=== PATIENT | male | born 1955 | race Hispanic/Latino ===

== ENCOUNTER → 2022-09-27 | Outpatient (CLI) | payer OTHER ==
[~2022-09-27] MED LIST: PERFLUTREN PROTEIN-A MICROSPHR 0.22 MG/ML VIAL IV ONE
== END | disposition home or self-care (01) ==
LOC: RAH 14:15
PROVIDERS: ATTEND Student in an Organized Health Care Education/Training Program
DX: I51.7 Cardiomegaly (principal); I77.810 Thoracic aortic ectasia; I25.10 Atherosclerotic heart disease of native coronary artery without angina pectoris; I51.89 Other ill-defined heart diseases
CPT/HCPCS: C8929; Q9956

== ENCOUNTER → 2023-06-16 | Outpatient (CLI) | payer OTHER | END | disposition home or self-care (01) | LOC: RAH 15:30 | PROVIDERS: ATTEND Internal Medicine | DX: M79.89 Other specified soft tissue disorders (principal); M71.22 Synovial cyst of popliteal space [Baker], left knee; D68.69 Other thrombophilia; R60.9 Edema, unspecified | CPT/HCPCS: 93971 ==

== ENCOUNTER 2025-01-24 23:00 | Emergency (ER) | payer OTHER ==
[~2025-01-24] VITALS: Ht 180.3 cm; Wt 123.4 kg
--- NOTE | 2025-01-24 23:19 | NUR ---
PATIENT REPORTS FEELING ILL SINCE TUESDAY, FEVER WEAKNESS. SAW PCP TODAY AND WAS TOLD WBC WERE ELEVATED
[2025-01-24 23:21] LABS: RAPID GROUP A STREP negative (NEGATIVE)
[2025-01-24 23:31] LABS: COVID19 (SARS ANTIGEN RAPID) PRESUMPTIVE NEGATIVE (NEGATIVE); INFLUENZA TYPE A Negative For Type A (NEGATIVE); INFLUENZA TYPE B Negative For Type B (NEGATIVE)
[2025-01-24 23:34] LABS: IMMATURE GRANULOCYTE ABSOLUTE 0.05 K/uL (0-1); NUCLEATED RED BLOOD CELLS 0.0 % (0.0-0.19); PLATELET COUNT (AUTO) 142 K/uL (130-400); RED BLOOD CELL COUNT(AUTO) 4.20 MIL/uL (4.50-6.20); RED CELL DISTRIBUTION WIDTH 14.6 % (11.0-15.5); WHITE BLOOD COUNT (AUTO) 11.8 K/uL (4.8-10.8)
[2025-01-24 23:49] LABS: CREATININE 1.4 mg/dL (0.5-1.3); GLOMERULAR FILTR. RATE CALC 54.0 mL/min (>90); GLUCOSE,RANDOM 164.0 mg/dL (70-105); SODIUM SERUM 130.0 mmol/L (136-145); UREA NITROGEN, BLOOD 27.0 mg/dL (7-18)
--- NOTE | 2025-01-24 23:53 | HMCIMG ---
EXAM: CR Chest, 1 view CLINICAL HISTORY: Shortness of breath. COMPARISON: None provided. FINDINGS: Mild bibasilar atelectasis, more pronounced on the left side. The lungs show no infiltrates or other acute findings. No pleural effusion or pneumothorax. The cardiomediastinal silhouette is within normal limits. A cardiac pacemaker device is present on the left side. No acute osseous abnormality. IMPRESSION: No acute cardiopulmonary process is evident. Mild bibasilar atelectasis, more pronounced on the left side. /[place]
[2025-01-24 23:58] LABS: ASPARTATE AMINOTRANSFERASE 29.0 U/L (10-37); CREATINE KINASE, TOTAL 117.0 U/L (21-232); TOTAL PROTEIN, SERUM 6.5 g/dL (6.0-8.3)
[2025-01-25] MEDS: 0.9%NACL 1000ML 1,000 ML IV ONE (00:42)
[2025-01-25 01:12] LABS: APPEARANCE,URINE CLEAR (CLEAR); GLUCOSE, URINE (UA) >=1000 mg/dL (NEGATIVE); LEUKOCYTE ESTERASE ,URINE NEGATIVE Leu/uL (NEGATIVE); NITRATE,URINE NEGATIVE (NEGATIVE); OCCULT BLOOD,URINE +- (TRACE) (NEGATIVE)
[2025-01-25 01:22] LABS: ADD UA MICROSCOPIC YES
[2025-01-25 01:24] LABS: SQUAMOUS EPITHELIAL CELL,UR RARE /HPF (0-2)
[2025-01-25 01:51] VITALS: BP 111/50; PULSE 89; RESP 16; TEMP 98.9; O2SAT 96
--- NOTE | 2025-01-25 02:20 | ERN ---
General Chief Complaint: Fever Stated Complaint: FEVER Time Seen by MD: 23:02 Time Seen by Midlevel: 23:02 Source: patient History of Present Illness Initial Comments The patient is a 69-year-old male with a past medical history of type 2 diabetes, hypertension, hyperlipidemia, and congestive heart failure presenting to the emergency department for evaluation of generalized body weakness that has been ongoing for the last three days. He was seen by his primary care doctor today where he had blood work performed and was diagnosed with an elevated white blood cell count along with dehydration. Allergies: Coded Allergies: No Allergy Information Available (Verified Allergy, Unknown, 09/27/22) Penicillins (Unverified Allergy, Unknown, 01/24/25) Past Medical History Past Medical History: A-Fib, CAD, CHF, DE, Other Medical History Other: HYPOTENSION Past Surgical History: Other Surgical History Other: HEART STENT, EXP LAP ROS Dictation CONSTITUTIONAL: Negative except for HPI HEAD/FACE: Negative except for HPI EENT: Negative except for HPI RESPIRATORY: Negative except for HPI GASTROINTESTINAL/ABDOMINAL: Negative except for HPI GENITOURINARY: Negative except for HPI MUSCULOSKELETAL: Negative except for HPI INTEGUMENTARY: Negative except for HPI NEUROLOGICAL/PSYCH: Negative except for HPI HEMATOLOGIC/LYMPHATIC: Negative except for HPI All Systems Negative, Except as noted above. 13 point review of systems assessed and all negative except for above. Physical Exam Physical Exam Dictation Vital Signs reviewed General Appearance: Alert, oriented x 3, no acute distress, well developed, nourished. Head and Face: non-traumatic. Eyes: PERRL, pink conjunctivas, eyelid no trauma, anterior chamber with arcus senilis. Ears: Pinnas intact and no signs of trauma or erythema ear canals clear and no discharge TM no erythema Nose: No discharge, no bleeding. Oropharynx: Mouth normal, tongue pink, pharynx clear,no erythema, tonsils no exudates, no abscesses noted, mucous membrane moist Neck: Supple, non-tender, no thyromegaly, no masses, no JVD, no bruits Breast:Deferred Chest:No tenderness, no crepitus, no paradoxical movement, no retractions Lungs:Clear, well-ventilated, symmetric, no rales, no wheezing, no rhonchi, no stridor, good breath sounds bilaterally Heart: Regular rate, regular rhythm, no murmur, no gallops Vascular: no peripheral edema, Abdomen: Soft, positive bowel sounds, nondistended, no guarding, nontender, no rebound, no masses no hepatomegaly, no splenomegaly, no Forrest's sign, no hernias. Rectal: Deferred Genital: Deferred Neurological: Normal speech, motor function intact, sensory function intact Musculoskeletal: Neck nontender, full range of motion, back nontender, full range of motion, Extremities: nontender, full range of motion Skin: Color pink, dry, no turgor, no rash, no lacerations, no abrasions, no contusions. Lymphatic: Deferred Results Laboratory and Microbiology Lab and Micro Result Laboratory Tests Test 01/24/25 23:03 01/24/25 23:26 01/25/25 00:15 Influenza Type A Antigen Negative For Type A Influenza Type B Antigen Negative For Type B SARS-CoV-2 Antigen (Rapid) PRESUMPTIVE NEGATIVE Group A Streptococcus Rapid negative (NEGATIVE) White Blood Count 11.8 K/uL (4.8-10.8) H Red Blood Count 4.20 MIL/uL (4.50-6.20) L Hemoglobin 12.0 g/dL (14.0-18.0) L Hematocrit 35.5 % (42-54) L Mean Corpuscular Volume 84.5 fL (79-99) Mean Corpuscular Hemoglobin 28.6 pg (27.0-33.0) Mean Corpuscular Hemoglobin Concent 33.8 g/dL (32.0-36.0) Red Cell Distribution Width 14.6 % (11.0-15.5) Platelet Count 142 K/uL (130-400) Mean Platelet Volume 10.4 fL (7.5-10.5) Immature Granulocyte % (Auto) 0.4 % (0-1) Neutrophils (%) (Auto) 77.6 % (40.0-77.0) H Lymphocytes (%) (Auto) 8.7 % (21.0-51.0) L Monocytes (%) (Auto) 12.6 % (3.0-13.0) Eosinophils (%) (Auto) 0.4 % (0.0-8.0) Basophils (%) (Auto) 0.3 % (0.0-5.0) Neutrophils # (Auto) 9.2 K/uL (1.8-7.7) H Lymphocytes # (Auto) 1.0 K/uL (1.0-4.8) Monocytes # (Auto) 1.5 K/uL (0.1-1.0) H Eosinophils # (Auto) 0.05 K/uL (0.00-0.70) Basophils # (Auto) 0.03 K/uL (0.00-0.20) Absolute Immature Granulocyte (auto 0.05 K/uL (0-1) Nucleated Red Blood Cells 0.0 % (0.0-0.19) White Cell Morphology Comment See comments Sodium Level 130 mmol/L (136-145) L Potassium Level 3.8 mmol/L (3.5-5.1) Chloride Level 99 mmol/L (101-111) L Carbon Dioxide Level 23 mmol/L (21-32) Blood Urea Nitrogen 27 mg/dL (7-18) H Creatinine 1.4 mg/dL (0.5-1.3) H Glomerular Filtration Rate Calc 54 mL/min (>90) Random Glucose 164 mg/dL (70-105) H Lactic Acid Level 1.5 mmol/L (0.8-2.5) Total Calcium 8.6 mg/dL (8.5-10.1) Magnesium Level 2.20 mg/dL (1.80-2.40) Total Bilirubin 1.0 mg/dL (0.2-1.0) Aspartate Amino Transf (AST/SGOT) 29 U/L (10-37) Alanine Aminotransferase (ALT/SGPT) 30 U/L (12-78) Alkaline Phosphatase 77 U/L (50-136) Total Creatine Kinase 117 U/L (21-232) Troponin I High Sensitivity 17 ng/L (4-75) B-Type Natriuretic Peptide 129 pg/mL (0-100) H Total Protein 6.5 g/dL (6.0-8.3) Albumin 2.4 g/dL (3.5-5.0) L Urine Color LIGHT-YELLOW (YELLOW) Urine Appearance CLEAR (CLEAR) Urine pH 5.5 (5.0-8.0) Urine Specific [place] 1.030 (1.001-1.031) Urine Protein 20 mg/dL (NEGATIVE) H Urine Glucose (UA) >=1000 mg/dL (NEGATIVE) H Urine Ketones NEGATIVE mg/dL (NEGATIVE) Urine Occult Blood +- (TRACE) (NEGATIVE) H Urine Nitrate NEGATIVE (NEGATIVE) Urine Bilirubin NEGATIVE mg/dL (NEGATIVE) Urine Urobilinogen 0.2 mg/dL (0.2-1.0) Urine Leukocyte Esterase NEGATIVE Sushant/uL Urine RBC 0-1 /HPF (0-1) Urine WBC 2-5 /HPF (0-1) H Urine Squamous Epithelial Cells RARE /HPF (0-2) Urine Bacteria FEW /HPF (None Seen) Labs Reviewed?: Yes MDM MDM: Differential diagnosis: Dehydration, electrolyte abnormality, pneumonia, urinary tract infection, COVID-19 There are no social concerns with this patient. Prescription drug management Prescriptions will include: None Medical management and examination interpretation discussions were had by me with other qualified healthcare professionals as indicated for the patient's care. ED Course Orders Procedure Category Date Status Time Covid19 (Sars Antigen LAB 01/24/25 Complete Rapid) 23:02 Influenza Type A & B, LAB 01/24/25 Complete Rapid 23:02 Rapid (Group A Strep) LAB 01/24/25 Complete 23:02 Cbc With Differential LAB 01/24/25 Complete 23:16 Creatine Kinase, Total LAB 01/24/25 Complete 23:16 B-Type Natriuretic LAB 01/24/25 Complete Peptide 23:16 Lactic Acid LAB 01/24/25 Complete 23:16 Magnesium LAB 01/24/25 Complete 23:16 Troponin I High LAB 01/24/25 Complete Sensitivity 23:16 Urinalysis Profile LAB 01/24/25 Complete 23:16 Chest 1vw RAD 01/24/25 Resulted 23:16 Comprehensive LAB 01/24/25 Complete Metabolic Panel 23:16 0.9%Nacl 1000ml (Ns PHA 01/25/25 Complete 1000ml) 00:30 Current Medications Medications (Trade) Dose Ordered Sig/Bethany Route PRN Reason Start Time Stop Time Status Last Admin Dose Admin Sodium Chloride 1,000 ml @ 0 mls/hr ONCE ONCE IV 01/25/25 00:30 01/25/25 00:31 DC 01/25/25 00:42 Vital Signs Date Time Temp Pulse Resp B/P (MAP) Pulse Ox O2 Delivery O2 Flow Rate FiO2 01/25/25 01:51 99.0 89 16 111/50 96 Room Air* 0 21 01/24/25 23:04 99.1 108 18 108/66 95 Room Air 0 DX & DISP Disposition: Discharge Departure Impression: Primary Impression: Dehydration Condition: Stable Additional Instructions: Your blood work today is consistent with dehydration. Your urinalysis does not show any evidence of infection. You have tested negative for influenza a, influenza B, and COVID-19. Your chest x-ray shows no signs of pneumonia. Your cardiac enzymes are negative. You were given IV fluids in the emergency department. Please follow up with your primary care doctor tomorrow for repeat evaluation. If you develop any new or worsening symptoms please report to the ER for further evaluation. Referrals: TOÑO GARCIA MD (PCP) Time of Disposition: 02:22 I have reviewed the case, and I agree with, Diagnosis and Plan I performed the substantive portion of the visit. I have reviewed and personally made and approve the management plan that is documented in the note by myself or the COURTNEY. I acknowledge for responsibility for the patient's management plan. CIERRA CHOI Jan 25, 2025 02:20
== END 2025-01-25 02:29 | disposition home or self-care (01) ==
LOC: EDH 23:00
DX: E86.0 Dehydration (principal); I48.91 Unspecified atrial fibrillation; E11.9 Type 2 diabetes mellitus without complications; E78.5 Hyperlipidemia, unspecified; I11.0 Hypertensive heart disease with heart failure; I50.9 Heart failure, unspecified; I25.10 Atherosclerotic heart disease of native coronary artery without angina pectoris; Z88.0 Allergy status to penicillin; Z95.5 Presence of coronary angioplasty implant and graft; Z20.822 Contact with and (suspected) exposure to COVID-19
CPT/HCPCS: 99284; 71045; 87426; 82550; 83735; 84484; 80053; 83880; 85025; 87880; 87804 ×2; 83605; 81001; 36415; J7030

== ENCOUNTER 2025-06-10 10:55 | Inpatient (IN) | payer OTHER ==
[~2025-06-10] VITALS: Ht 180.3 cm; Wt 114.9 kg
--- NOTE | 2025-06-10 11:07 | ERN ---
General Chief Complaint: Dizzy/Light Headed Stated Complaint: WEAKNESS ONSET TODAY Time Seen by MD: 10:58 Source: patient History of Present Illness Initial Comments The patient is a 69-year-old male who came to the ER with complaint of dizziness and vertigo. As per the patient, the patient wake up in the morning today the patient was having severe vertigo as the room was spinning around and was feeling dizzy. The patient did not tried to get up from the bed and laid in the bed. The patient stated that he has had episodes of vertigo and dizziness in the past worse but this was the worst one Timing/Duration: 4-6 hours Modifying Factors: improves with movement Associated Symptoms: other Allergies: Coded Allergies: No Allergy Information Available (Verified Allergy, Unknown, 09/27/22) Penicillins (Unverified Allergy, Unknown, 01/24/25) Past Medical History Past Medical History: CAD, CHF, Diabetes-Type II, Hypertension, [place] Medical History Other: ORTHOSTATIC HYPOTENSION Past Surgical History: Pacer/AICD Surgical History Other: HEART STENT, EXP LAP Constitutional: (+) other documentation EENTM: (-) eye pain, (-) blurred vision, (-) tearing, (-) double vision, (-) ear pain, (-) ear discharge, (-) nose pain, (-) nose congestion, (-) throat pain, (-) Throat swelling, (-) mouth pain, (-) tooth pain, (-) mouth swelling, (-) other documentation Respiratory: (-) cough, (-) orthopnea, (-) short of breath, (-) stridor, (-) wheezing, (-) other documentation Cardiovascular: (-) chest pain, (-) edema, (-) palpitations, (-) syncope, (-) dyspnea on exertion, (-) other documentation Gastrointestinal/Abdominal: (-) nausea, (-) vomiting, (-) diarrhea, (-) abdominal pain, (-) abdominal distention, (-) constipation, (-) rectal bleeding, (-) dark stool/melena, (-) other documentation Genitourinary: (-) penile discharge, (-) dysuria, (-) frequency, (-) hematuria, (-) pain, (-) other documentation Musculoskeletal: (-) Neck pain, (-) back pain, (-) Flank Pain, (-) joint pain, (-) joint swelling, (-) muscle pain, (-) muscle stiffness, (-) gout, (-) other documentation Skin: (-) laceration, (-) contusion, (-) abrasion, (-) abscess, (-) rash, (-) change in color, (-) change in hair, (-) change in nails, (-) diaphoresis, (-) dryness, (-) other documentation Neuro: (+) vertigo Physical Exam Orientation: (+) alert, (+) oriented x 3 Head/Face Trauma: No Ear, Nose, Throat: (+) hearing grossly normal Neck: (+) normal inspection Respiratory: (+) lungs clear Heart: (+) regular Back: (-) normal inspection, (-) no CVA tenderness, (-) no vertebral tenderness, (-) CVA tenderness (R), (-) CVA tenderness (L), (-) decreased range of motion, (-) muscle spasm, (-) vertebral tenderness, (-) other Extremities: (-) normal range of motion, (-) non-tender, (-) normal inspection, (-) no pedal edema, (-) no calf tenderness, (-) normal capillary refill, (-) pelvis stable, (-) calf tenderness, (-) inflammation, (-) pedal edema, (-) slow capillary refill, (-) swelling, (-) other Neurologic/Psychiatric: (-) normal speech, (-) no motor defecits, (-) no sensor y deficits, (-) electrician master II-XII nml as tested, (-) normal gait, (-) normal mood/affect, (-) abnormal cerebellar tests, (-) abnormal gait, (-) aphasia, (-) facial droop, (-) other documentation Results Laboratory and Microbiology Lab and Micro Result Laboratory Tests Test 06/10/25 11:14 White Blood Count 7.8 K/uL (4.8-10.8) Red Blood Count 4.99 MIL/uL (4.50-6.20) Hemoglobin 13.9 g/dL (14.0-18.0) L Hematocrit 42.5 % (42-54) Mean Corpuscular Volume 85.2 fL (79-99) Mean Corpuscular Hemoglobin 27.9 pg (27.0-33.0) Mean Corpuscular Hemoglobin Concent 32.7 g/dL (32.0-36.0) Red Cell Distribution Width 14.2 % (11.0-15.5) Platelet Count 133 K/uL (130-400) Mean Platelet Volume 10.2 fL (7.5-10.5) Nucleated Red Blood Cells 0.0 % (0.0-0.19) Sodium Level 138 mmol/L (136-145) Potassium Level 3.8 mmol/L (3.5-5.1) Chloride Level 104 mmol/L (101-111) Carbon Dioxide Level 24 mmol/L (21-32) Blood Urea Nitrogen 10 mg/dL (7-18) Creatinine 1.0 mg/dL (0.5-1.3) Glomerular Filtration Rate Calc 80 mL/min (>90) Random Glucose 125 mg/dL (70-105) H Total Calcium 8.0 mg/dL (8.5-10.1) L Troponin I High Sensitivity 14 ng/L (4-75) Labs Reviewed?: Yes EKG/XRAY/US/CT/MRI EKG Comment Heart rate 65 FL [address] elevation noted MDM MDM: Differential diagnosis: Vertigo, dizzy/lightheadedness The patient was seen and examined in the ER. The patient was complaining of vertigo when moving his head therefore he was given meclizine. Also started on IV fluids. CT scan of the head was done and we are awaiting results. Due to patient's cardiac history and ongoing dizziness the patient is going to get admitted for further workup. Chest x-ray, CBC, BMP and troponin unremarkable ED Course Orders Procedure Category Date Status Time Cbc Without LAB 06/10/25 Complete Differential 11:02 Basic Metabolic Panel LAB 06/10/25 Complete 11:02 Troponin I High LAB 06/10/25 Complete Sensitivity 11:02 Chest 1vw RAD 06/10/25 Resulted 11:02 Orthostatic Vital CPOE 06/10/25 Transmitted Signs 11:02 12 Lead Ekg Tracing- EKG 06/10/25 Complete Technical 11:02 0.9% Nacl 500ml PHA 06/10/25 Complete Iv.Soln (Ns 500ml 11:30 Meclizine Hcl 25 Mg PHA 06/10/25 Complete (Antivert 25 Mg) 11:30 Ct Head/Brain W/O CT 06/10/25 Resulted Contrast 11:49 Lorazepam 2 Mg PHA 06/10/25 Complete (Ativan) 13:00 Current Medications Medications (Trade) Dose Ordered Sig/Bethany Route PRN Reason Start Time Stop Time Status Last Admin Dose Admin Lorazepam (AtiVAN) 0.5 mg ONCE ONCE IVP 06/10/25 13:00 06/10/25 13:01 DC Meclizine HCl (ANTIvert 25 mg) 25 mg ONCE ONCE PO 06/10/25 11:30 06/10/25 11:37 DC 06/10/25 11:54 Sodium Chloride 500 ml @ 0 mls/hr Q0M ONCE IV 06/10/25 11:30 06/10/25 11:37 DC 06/10/25 11:54 Vital Signs Date Time Temp Pulse Resp B/P (MAP) Pulse Ox O2 Delivery O2 Flow Rate FiO2 06/10/25 15:34 60 18 115/65 97 Room Air* 0 06/10/25 11:23 97.9 67 20 121/60 97 Room Air* 0 06/10/25 10:56 97.7 66 16 116/67 98 Room Air 0 DX & DISP Disposition: Inpatient Departure Impression: Primary Impression: Vertigo Additional Impressions: Dehydration, Dizziness Condition: Stable Referrals: TOÑO GARCIA MD (PCP) I performed a substantive portion of the visit. I have reviewed and personally made and approve the management plan that is documented in the notes by myself with COURTNEY/resident. I acknowledged full responsibility for the patient's management plan. 69-year-old male multiple comorbidities including CAD presents for dizziness and lightheadedness EKG is stable Labs are unremarkable CT head is unremarkable You received meclizine IV fluids in the ER still remains dizzy. We will admit for dizziness cardiac workup. Hospitalist consulted HAROON ELDER MD Jun 10, 2025 11:07 HAYDEE CHAU DO Jun 10, 2025 17:58
[2025-06-10 11:42] LABS: NUCLEATED RED BLOOD CELLS 0.0 % (0.0-0.19); PLATELET COUNT (AUTO) 133.0 K/uL (130-400); RED BLOOD CELL COUNT(AUTO) 4.99 MIL/uL (4.50-6.20); RED CELL DISTRIBUTION WIDTH 14.2 % (11.0-15.5); WHITE BLOOD COUNT (AUTO) 7.8 K/uL (4.8-10.8)
[2025-06-10 11:47] LABS: CREATININE 1.0 mg/dL (0.5-1.3); GLOMERULAR FILTR. RATE CALC 80.0 mL/min (>90); GLUCOSE,RANDOM 125.0 mg/dL (70-105); SODIUM SERUM 138.0 mmol/L (136-145); UREA NITROGEN, BLOOD 10.0 mg/dL (7-18)
[2025-06-10] MEDS: 0.9% NACL 500ML IV.SOLN 500 ML IV ONE (11:54)
--- NOTE | 2025-06-10 12:20 | EKG ---
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
--- NOTE | 2025-06-10 12:33 | HMCIMG ---
STUDY CR Chest, 1 View. HISTORY Dizziness. TECHNIQUE Single frontal radiograph of the chest. COMPARISON Chest radiograph dated 01/24/2025. FINDINGS LUNGS The lungs are clear without focal consolidation, pulmonary edema, or acute airspace opacity. No suspicious pulmonary nodule is evident on this projection. PLEURAL SPACES No pleural effusion or pneumothorax is identified. MEDIASTINUM The cardiomediastinal silhouette is within normal limits in size and contour. DEVICES A left anterior chest wall cardiac pacemaker with implantable cardioverter-defibrillator is in place. The generator position is satisfactory, and the transvenous leads project along the expected course into the right heart without evidence of discontinuity, kinking, abnormal looping, or migration. No radiographic evidence of device-related complication is seen. BONES AND SOFT TISSUES No acute osseous abnormality is identified. Visualized soft tissues are unremarkable. IMPRESSION * Left anterior chest wall cardiac pacemaker with implantable cardioverter-defibrillator in situ, without radiographic evidence of hardware-related complication. * Clear lungs without pleural effusion, pneumothorax, or acute cardiopulmonary abnormality. /[place]
--- NOTE | 2025-06-10 15:43 | HMCIMG ---
EXAM: CT Head Without IV contrast. CLINICAL HISTORY: Dizzines TECHNIQUE: Axial computed tomography images of the head/brain without intravenous contrast. COMPARISON: None provided. FINDINGS: BRAIN: No evidence of acute hemorrhage. No mass lesion. No CT evidence for acute territorial infarct. No midline shift or extra-axial collections. VENTRICLES: No hydrocephalus. ORBITS: The orbits are unremarkable. SINUSES AND MASTOIDS: The paranasal sinuses and mastoid air cells are clear. BONES: No fracture. SOFT TISSUES: Unremarkable. IMPRESSION: No acute intracranial abnormality. /[place]
[2025-06-10] MEDS ORDERED: ARTIFICAL TEARS SOL 15 ML OP PRN (16:00)
[2025-06-10] MEDS ORDERED: LIDOCAINE HCL 2% VISCOUS 30 ML, MAG/ALUM/SIMETH 30ML 30 ML, DICYCLOMINE HCL 20 MG PO PRN (16:00)
[2025-06-10] MEDS ORDERED: LOPERAMIDE HCL 2 MG CAP PO PRN (16:00)
[2025-06-10] MEDS ORDERED: NITROGLYCERIN 0.4 MG SL TAB SL PRN (16:00)
[2025-06-10] MEDS ORDERED: guaiFENesin-DM 200/20MG 10ML PO PRN (16:00)
[2025-06-10] MEDS ORDERED: BENZOCAINE/MENTH/CETYLPYRD CL 1 EACH LOZENGE MM PRN (16:00)
[2025-06-10] MEDS ORDERED: MAG/ALUM/SIMETH 30 ML UDCUP PO PRN (16:00)
--- NOTE | 2025-06-10 17:23 | NUR ---
CALLED HOUSEKEEPING AT THIS TIME TO PROVIDE A HOSPITAL BED.
--- NOTE | 2025-06-10 17:50 | HP ---
[facility] HISTORY & PHYSICAL Date Patient Seen: Jun 10, 2025 Time of Visit: 17:49 Supervising Physician: Dr. Montes Primary Care Physician: Dr. Hina Marte Outpatient Specialists: Dr. Ed Dee Inpatient Consults: Tele neuro PROBLEM LIST: Dizziness, vertigo vs acute ischemic stroke Acute complicated cystitis, POA Acute on chronic kidney disease, GFR 80 Diabetes mellitus with hyperglycemia Anemia of chronic disease Glucosuria Chronic problem list: CAD s/p cardiac stents and pacer/AICD, CHF, DM type 2, HTN, MS, orthostatic hypotension HPI: Mr. Corley is a 69-year-old male with a history of CAD, CHF, MS, diabetes-type II, hypertension and orthostatic hypotension who presented to [facility] ED via EMS for evaluation of dizziness and vertigo ongoing for a few months. He reports that he gets a dizziness when he wakes up in the morning but usually goes away quick. This morning the dizziness did not go away which prompted the ED visit. The patient stated that he woke up in the morning today and was having severe vertigo as the room was spinning around and was feeling dizzy. The patient did not try to get up from the bed and remained in the bed. 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 VS: HR 66 bmp, RR 16 BMP, BP 116/67, 98% RA, 97.7 F, Labs: Chemistry: Random Glucose :125, Total Calcium: 8.0, Hematology: Hgb 13.9, Head CT: No acute intracranial abnormality. Chest X-Ray: Left anterior chest wall cardiac pa cemaker with implantable cardioverter-defibrillator in situ, without radiographic evidence of hardware-related complication. Clear lungs without pleural effusion, pneumothorax, or acute cardiopulmonary abnormality. In ED the patient received meclizine, IV NS 500 mL. The patient's dizziness did not resolve with the meclizine and IV fluids. Orthostatics were unremarkable. ED provider request patient be admitted for the dizziness and cardiac workup. ED provider request patient be admitted to the hospital with the diagnosis vertigo, dehydration, dizziness. I assessed the patient at bedside in ED 14. No family member at bedside. The patient appeared comfortable, breathing was even, unlabored, in no distress. NIH 0. Denies dizziness, chest pain, shortness of breath at present. The patient states that he received meclizine and then was taken to CT. He states that from movement from his stretcher to CT he was very dizzy. I informed him of labs, diagnostics, and plan of care. He verbalized understanding and is in agreement with the plan. Plan and assessment are listed below. Addendum: Consulted tele neuro. We will follow the recommendations. PAST MEDICAL HISTORY As mentioned above. PAST SURGICAL HISTORY Heart stent, EXP LAP and pacer/AICD PAST SOCIAL HISTORY Denies alcohol, tobacco, illicit drug use. FAMILY HISTORY Noncontributory Coded Allergies: No Allergy Information Available (Verified Allergy, Unknown, 09/27/22) Penicillins (Unverified Allergy, Unknown, 01/24/25) REVIEW OF SYSTEMS: 12 point ROS reviewed with patient. Pertinent positives mentioned above. Otherwise negative. PHYSICAL EXAM: GENERAL: Alert, weak, awake oriented x 3 HEENT: EOMI, Sclera non icteric, moist mucosa NECK: Supple, no JVD, trachea midline LUNGS: Clear breath sounds bilaterally. No wheezes HEART: Regular rate and rhythm. Normal S1 and S2, without murmurs ABD: Abdomen soft, nontender. Bowel sounds present EXT: No clubbing cyanosis or edema NEURO: Alert and oriented X3, follows commands Vital Signs (last 8hr) Date Time Temp Pulse Resp B/P (MAP) Pulse Ox O2 Delivery O2 Flow Rate FiO2 06/10/25 15:34 60 18 115/65 97 Room Air* 0 21 06/10/25 11:23 97.9 67 20 121/60 97 Room Air* 0 21 06/10/25 10:56 97.7 66 16 116/67 98 Room Air 0 LABS: Hematology Labs: Test 06/10/25 11:14 Range/Units White Blood Count 7.8 4.8-10.8 K/uL Red Blood Count 4.99 4.50-6.20 MIL/uL Hemoglobin 13.9 L 14.0-18.0 g/dL Hematocrit 42.5 42-54 % Mean Corpuscular Volume 85.2 79-99 fL Mean Corpuscular Hemoglobin 27.9 27.0-33.0 pg Mean Corpuscular Hemoglobin Concent 32.7 32.0-36.0 g/dL Red Cell Distribution Width 14.2 11.0-15.5 % Platelet Count 133 130-400 K/uL Mean Platelet Volume 10.2 7.5-10.5 fL Nucleated Red Blood Cells 0.0 0.0-0.19 % Chemistry Labs: Test 06/10/25 11:14 Range/Units Sodium Level 138 136-145 mmol/L Potassium Level 3.8 3.5-5.1 mmol/L Chloride Level 104 101-111 mmol/L Carbon Dioxide Level 24 21-32 mmol/L Blood Urea Nitrogen 10 7-18 mg/dL Creatinine 1.0 0.5-1.3 mg/dL Glomerular Filtration Rate Calc 80 >90 mL/min Random Glucose 125 H 70-105 mg/dL Total Calcium 8.0 L 8.5-10.1 mg/dL Troponin I High Sensitivity 14 4-75 ng/L DIAGNOSTICS / RADIOLOGY RESULTS: [ ] PLAN -Admit to PCCU with continuous telemetry monitoring and fall precautions. -Follow tele neuro's recommendations: Systolic blood pressure > 140 and <180. CBC, CMP, urine drug screen, UA, ESR, hemoglobin A1c, lipid panel, MRI without contrast (if MRI negative for stroke consider marisol-hallpike maneuver), PT/OT evaluation, prn meclizine. -Meclizine 25 mg p.o. TID X 1 day. -Start Levaquin 500 mg IV daily. -Aspirin 324 mg p.o. now then aspirin 81 mg p.o. daily. -Atorvastatin 40 mg IV. -Reconcile home medications: Lasix, losartan, metoprolol, prednisone, statin, spironolactone, warfarin. -Hold home medication Jardiance. -Hold patient's Lasix for tonight. ED gave NS 500 mL bolus. -Carotid Doppler -2D echo in a.m. -PRN medications for: Pain management, fever, hypertension, N/V, constipation. -Glucometer checks AC & HS needed with insulin regular sliding scale coverage as needed. -Blood pressure checks every 4 hours and as needed. -Reconcile home medications once available. -Monitor renal and liver function. -Monitor electrolytes and treat accordingly PRN -AM labs. -GI and DVT prophylaxis -Further plan/orders per hospitalization course. NEURO: Minimize central acting medications as possible. Maintain fall precautions, adequate lighting during the day PULMONARY: Supplemental 02 as needed. Maintain aspiration precautions at all times CARDIOVASCULAR: Follow hemodynamics. Vital signs per facility protocol GI & NUTRITION: Continue with nutritional support. Continue stool softeners and laxatives as needed. KIDNEYS & ELECTROLYTES: Strict monitoring of intake, output and overall fluid balance. Avoid nephrotoxic medications to the extent possible. Medications to be dosed according to renal function. Monitor electrolytes and replace as needed ENDOCRINE: Maintain blood glucose between 100-180 at all times. Hypoglycemia protocol in place INFECTIOUS DISEASE: Trend temperature, WBC and procalcitonin level Follow cultures, deescalate antibiotics as soon as possible. Panculture if new onset fever ONCOLOGY/HEMATOLOGY/COAGULATION: Monitor for s/s of bleeding Monitor hemoglobin, coagulation studies as needed SKIN: Pressure ulcer prevention per facility protocol Specialty mattress ORTHO/REHAB: Continue PT/OT Prophylaxis: Continue GI and DVT prophylaxis Code Status: Full Resuscitation Disposition: TBD ADVANCED CARE PLANNING Which of the following were discussed? Hospice Care - No Therapeutic option - Yes Advance Directives- Yes Other discussions - Discussed with who? Patient Voluntary nature of this service was explained to the patient? Yes Reviewed by Physician? ( if this service was preformed by COURTNEY) Yes ATTESTATION BY PHYSICIAN I have seen and examined the patient. I reviewed the documentation, medical decision making, and treatment plan as noted by the COURTNEY above. I agree with the finding and plan of care. CH[employer] Jun 10, 2025 17:50
[2025-06-10] MEDS: FAMOTIDINE 20MG TAB PO SCH (20:53)
[2025-06-10] MEDS ORDERED: FAMOTIDINE 20MG VIAL IV SCH (21:00)
[2025-06-10 21:22] LABS: APPEARANCE,URINE CLEAR (CLEAR); GLUCOSE, URINE (UA) 300 mg/dL (NEGATIVE); LEUKOCYTE ESTERASE ,URINE 250 Leu/uL (NEGATIVE); NITRATE,URINE NEGATIVE (NEGATIVE); OCCULT BLOOD,URINE SMALL (NEGATIVE)
[2025-06-10 21:23] LABS: ADD UA MICROSCOPIC YES
[2025-06-10 21:27] LABS: SQUAMOUS EPITHELIAL CELL,UR FEW /HPF (0-2)
[2025-06-10] MEDS ORDERED: WARF4TAB8 PO (21:48)
[2025-06-10] MEDS ORDERED: FURO20TA4 PO (21:48)
[2025-06-10] MEDS ORDERED: METO-391 PO (21:48)
[2025-06-10] MEDS ORDERED: OMEP20CA12 PO (21:48)
[2025-06-10] MEDS ORDERED: LOSA50TA64 PO (21:48)
[2025-06-10] MEDS ORDERED: EMPA10TA PO (21:48)
[2025-06-10] MEDS ORDERED: WARF5TAB8 PO (21:48)
[2025-06-10] MEDS ORDERED: SPIR25TA6 PO (21:48)
[2025-06-10] MEDS ORDERED: ROSU10TA98 PO (21:48)
[2025-06-10] MEDS: ASPIRIN 81MG CHEW TAB PO ONE (22:13)
--- NOTE | 2025-06-11 02:26 | HMCIMG ---
EXAMINATION: DUPLEX ULTRASOUND EXAMINATION OF THE BILATERAL CAROTID AND VERTEBRAL ARTERIES. CLINICAL HISTORY: Dizziness. COMPARISON: CT head without contrast from the same day. TECHNIQUE: Real-time ultrasound scan of the bilateral carotid and vertebral arteries, 2-D grayscale, with color Doppler flow and spectral waveform analysis. FINDINGS: Color and spectral Doppler interrogation of the carotid vessels on the right demonstrate peak systolic velocities as follows: CCA (Proximal and distal): 59 and 59 cm/s respectively. Bulb: 69 cm/s. ECA: 84 cm/s. ICA (Proximal, mid, and distal): 59, 67, and 71 cm/s respectively. Vertebral artery demonstrates antegrade flow: 38 cm/s. Right ICA/CCA ratio: 1.2 Peak systolic velocities on the left are as follows: CCA (Proximal and distal): 85 and 72 cm/s respectively. Bulb: 55 cm/s. ECA: 104 cm/s. ICA (Proximal, mid, and distal): 87, 60, and 59 cm/s respectively. Vertebral artery demonstrates antegrade flow: 50 cm/s. Left ICA/CCA ratio: 1.2 Both the common carotid arteries and their branches reveal mild intimal thickening. There are calcified plaques in the bilateral carotid bulb without significant stenosis. IMPRESSION: Mild intimal thickening in the bilateral carotid arteries and their branches. Calcified plaques in the bilateral carotid bulb without significant stenosis. There is no significant flow limiting lesions in the remainder of the arteries. /[place]
[2025-06-11 02:45] LABS: AMPHET/METH SCREEN,URINE NEGATIVE (NEGATIVE); BARBITURATE SCREEN, URINE NEGATIVE (NEGATIVE); CANNABINOID SCREEN,URINE NEGATIVE (NEGATIVE); COCAINE SCREEN,URINE NEGATIVE (NEGATIVE)
[2025-06-11 03:28] LABS: SARS-CoV-2, RNA, NAAT NEGATIVE SARS CoV-2 (NEGATIVE)
[2025-06-11 03:44] LABS: INFLUENZA TYPE A Negative For Type A (NEGATIVE); INFLUENZA TYPE B Negative For Type B (NEGATIVE)
[2025-06-11 06:14] LABS: NUCLEATED RED BLOOD CELLS 0.0 % (0.0-0.19); PLATELET COUNT (AUTO) 139.0 K/uL (130-400); RED BLOOD CELL COUNT(AUTO) 5.01 MIL/uL (4.50-6.20); RED CELL DISTRIBUTION WIDTH 14.1 % (11.0-15.5); WHITE BLOOD COUNT (AUTO) 6.0 K/uL (4.8-10.8)
[2025-06-11 06:17] LABS: ERYTHROCYTE SEDIMENTATION RATE 10.0 MM/HR (0-20)
[2025-06-11 06:21] LABS: INR 2.89 (0.85-1.15)
[2025-06-11 06:53] LABS: ASPARTATE AMINOTRANSFERASE 12.0 U/L (10-37); CREATININE 1.0 mg/dL (0.5-1.3); GLOMERULAR FILTR. RATE CALC 80.0 mL/min (>90); GLUCOSE,RANDOM 107.0 mg/dL (70-105); PHOSPHORUS 2.8 mg/dL (2.5-4.9); SODIUM SERUM 138.0 mmol/L (136-145); TOTAL PROTEIN, SERUM 6.7 g/dL (6.0-8.3); UREA NITROGEN, BLOOD 11.0 mg/dL (7-18)
[2025-06-11] MEDS ORDERED: PHARMACY COMMUNICATION MISC SCH (07:30)
--- NOTE | 2025-06-11 07:52 | NUR ---
[facility] IMPLANTABLE DEFIBRILLATOR MODEL #: [id number] SERIAL #: [id number] IMPLANT DATE:
--- NOTE | 2025-06-11 08:20 | PN ---
[facility] PROGRESS NOTE Date Patient Seen: Jun 11, 2025 Time of Visit: 08:16 Supervising Physician: Dr Junior Monroy Primary Care Physician: Dr. Hina Marte Outpatient Specialists: Dr. Ed Dee Inpatient Consults: Tele neuro PROBLEM LIST: Dizziness, vertigo vs acute ischemic stroke Acute complicated cystitis, POA Acute on chronic kidney disease, GFR 80 Diabetes mellitus with hyperglycemia Electrolyte derangement syndrome: Hypomagnesemia Mild protein calorie malnutrition Anemia of chronic disease Glucosuria Chronic Problem List: CAD s/p cardiac stents and pacer/AICD CHF DM type 2 HTN UT Orthostatic hypotension INTERVAL HISTORY: Patient examined and seen during my assessment accompanied by patient's bedside nurse in the emergency department [place] 14., Awake alert and oriented and appears in no acute distress. Patient confirms that the patient does not have a top former's outside of the hospital. Reviewed and discussed initial clinical workup for the patient pending tests are going to be echocardiogram with a bubble study, and MRI of the brain without contrast. Other diagnostic tests CT of the head has been negative. Carotid ultrasound negative reviewed and discussed with the patient laboratory results: WBC 1 0, hemoglobin 13.8, hematocrit 42.7%, platelets 139, sodium 138, potassium 4.3, BUN 11, creatinine 1.0, GFR 80, magnesium 1.90, and albumin 3.1. Vital signs: Temperature 98.4, respirations 20, pulse 62, blood pressure 118/69, oxygen saturation 97% FiO2 21, room air. After discussion no new other questions or concerns patient vital signs were stable. Afebrile. Further orders per course of stay, a.m. labs ordered. REVIEW OF SYSTEMS: 12 point ROS reviewed with patient. Pertinent positives mentioned above. Otherwise negative. PHYSICAL EXAM: GENERAL: Alert, weak, awake oriented x 3 HEENT: EOMI, Sclera non icteric, moist mucosa NECK: Supple, no JVD, trachea midline LUNGS: Clear breath sounds bilaterally. No wheezes HEART: Regular rate and rhythm. Normal S1 and S2, without murmurs ABD: Abdomen soft, nontender. Bowel sounds present EXT: No clubbing cyanosis or edema NEURO: Alert and oriented X3, follows commands Vital Signs (last 8hr) Date Time Temp Pulse Resp B/P (MAP) Pulse Ox O2 Delivery O2 Flow Rate FiO2 06/11/25 06:46 83 18 134/76 97 Room Air* 0 21 06/11/25 06:44 70 18 127/70 98 Room Air* 0 21 06/11/25 06:42 98.4 65 16 115/53 98 Room Air* 0 21 06/11/25 01:50 60 16 124/59 98 Room Air* 0 21 LABS: Hematology Labs: Test 06/11/25 06:02 Range/Units White Blood Count 6.0 4.8-10.8 K/uL Red Blood Count 5.01 4.50-6.20 MIL/uL Hemoglobin 13.8 L 14.0-18.0 g/dL Hematocrit 42.7 42-54 % Mean Corpuscular Volume 85.2 79-99 fL Mean Corpuscular Hemoglobin 27.5 27.0-33.0 pg Mean Corpuscular Hemoglobin Concent 32.3 32.0-36.0 g/dL Red Cell Distribution Width 14.1 11.0-15.5 % Platelet Count 139 130-400 K/uL Mean Platelet Volume 10.2 7.5-10.5 fL Nucleated Red Blood Cells 0.0 0.0-0.19 % Erythrocyte Sedimentation Rate 10 0-20 MM/HR Chemistry Labs: Test 06/11/25 06:02 06/10/25 11:14 Range/Units Sodium Level 138 136-145 mmol/L Potassium Level 4.3 3.5-5.1 mmol/L Chloride Level 106 101-111 mmol/L Carbon Dioxide Level 27 21-32 mmol/L Blood Urea Nitrogen 11 7-18 mg/dL Creatinine 1.0 0.5-1.3 mg/dL Glomerular Filtration Rate Calc 80 >90 mL/min Random Glucose 107 H 70-105 mg/dL Total Calcium 8.2 L 8.5-10.1 mg/dL Phosphorus Level 2.8 2.5-4.9 mg/dL Magnesium Level 1.90 1.80-2.40 mg/dL Total Bilirubin 0.5 0.2-1.0 mg/dL Aspartate Amino Transf (AST/SGOT) 12 10-37 U/L Alanine Aminotransferase (ALT/SGPT) 12 12-78 U/L Alkaline Phosphatase 69 50-136 U/L Troponin I High Sensitivity 17 4-75 ng/L B-Type Natriuretic Peptide 243 H 0-100 pg/mL Total Protein 6.7 6.0-8.3 g/dL Albumin 3.1 L 3.5-5.0 g/dL Lipase 20 16-77 U/L Vitamin B12 Level 208 193-986 pg/mL Folic Acid (LAB) 17.30 2-20 ng/mL Thyroid Stimulating Hormone (TSH) 3.12 0.36-3.74 uIU/mL Hemoglobin A1c 6.1 H 4.0-6.0 % Estimated Average Glucose (eAG) 128 H 70-126 mg/dL Coagulation Labs: Test 06/11/25 06:02 Range/Units Prothrombin Time 27.6 H 9.6-11.6 SEC Prothromb Time International Ratio 2.89 H 0.85-1.15 DIAGNOSTICS / RADIOLOGY RESULTS: [ ] PLAN -Admit to PCCU with continuous telemetry monitoring and fall precautions. -Follow tele neuro's recommendations: Systolic blood pressure > 140 and <180. CBC, CMP, urine drug screen, UA, ESR, hemoglobin A1c, lipid panel, MRI without contrast (if MRI negative for stroke consider marisol-hallpike maneuver), PT/OT evaluation, prn meclizine. -Meclizine 25 mg p.o. TID X 1 day. -Start Levaquin 500 mg IV daily. -Aspirin 324 mg p.o. now then aspirin 81 mg p.o. daily. -Atorvastatin 40 mg IV. -Reconcile home medications: Lasix, losartan, metoprolol, prednisone, statin, spironolactone, warfarin. -Hold home medication Jardiance. -Hold patient's Lasix for tonight. ED gave NS 500 mL bolus. -PRN medications for: Pain management, fever, hypertension, N/V, constipation. -Glucometer checks AC & HS needed with insulin regular sliding scale coverage as needed. -Monitor electrolytes and treat accordingly PRN -AM labs. -GI and DVT prophylaxis -Further plan/orders per hospitalization course. NEURO: Minimize central acting medications as possible. Maintain fall precautions, adequate lighting during the day PULMONARY: Supplemental 02 as needed. Maintain aspiration precautions at all times CARDIOVASCULAR: Follow hemodynamics. Vital signs per facility protocol GI & NUTRITION: Continue with nutritional support. Continue stool softeners and laxatives as needed. KIDNEYS & ELECTROLYTES: Strict monitoring of intake, output and overall fluid balance. Avoid nephrotoxic medications to the extent possible. Medications to be dosed according to renal function. Monitor electrolytes and replace as needed ENDOCRINE: Maintain blood glucose between 100-180 at all times. Hypoglycemia protocol in place INFECTIOUS DISEASE: Trend temperature, WBC and procalcitonin level Follow cultures, deescalate antibiotics as soon as possible. Panculture if new onset fever ONCOLOGY/HEMATOLOGY/COAGULATION: Monitor for s/s of bleeding Monitor hemoglobin, coagulation studies as needed SKIN: Pressure ulcer prevention per facility protocol Specialty mattress ORTHO/REHAB: Continue PT/OT Prophylaxis: Continue GI and DVT prophylaxis Code Status: Full Resuscitation Disposition: [facility] Jun 11, 2025 08:20
[2025-06-11] MEDS: SPIRONOLACTONE 25 MG TAB PO SCH (08:50)
[2025-06-11] MEDS: ASPIRIN 81MG CHEW TAB PO SCH (08:50)
--- NOTE | 2025-06-11 09:13 | NUR ---
DCP; HOME Pt lives at home with Farzaneh [facility] [phone]. They have food stamp assistance. Pt reports he remains independent of all his ADLS, uses no DME or HH services. PCP is Juan J Marte Uses [facility] for rx. Denies dc needs and will return home at ar.
--- NOTE | 2025-06-11 10:06 | NUR ---
MRI NOTIFIED ME TO CALL PT DATA CENTER ENGINEER TO GET CLEARANCE. CALLED DR SARAI GUAMAN, PT DATA CENTER ENGINEER, AND PER DR GUAMAN: CALL [facility] TO SEE COMPATIBILITY.
--- NOTE | 2025-06-11 10:12 | NUR ---
[facility]TACTED [facility] AND SPOKE WITH [facility] FUSION ANALYST. PER HIM, DEFIBRILLATOR IS COMPATIBLE TO 1.5 IN AN MRI AND WILL BE NEEDING TO BE SET TO MRI MODE.. TRANSFERRED TO DIFFERENT DEPARTMENT AND THEY WILL BE SENDING A FUSION ANALYST TO SET THE DEFIBRILLATOR IN MRI MODE. PER JOEL, FUSION ANALYST OF [facility] PENDING TO CONTACT ME.
--- NOTE | 2025-06-11 15:54 | HMCSR ---
APPROVED REPORT EXAM: Two-dimensional and M-mode echocardiogram with Doppler and color Doppler. INDICATION ICD: Dizziness 2D Dimensions RVDd 4.4 cm LVEF(%) 38.2 (>50%) LA ESV INDEX (BP) 31.25 mL/m2 IVSd 0.8 (0.7-1.1cm) FS(%) 19 % LVDd 5.7 (3.8-5.6cm) LA (2D) 4.2 (1.6-4.0cm) PWd 1.0 (0.7-1.1cm) Ao Root(2D) 4.2 (2.0-3.7cm) IVSs 0.9 cm LVOT diam 2.4 (1.8-2.4cm) LVDs 4.6 (2.5-4.0cm) PWs 1.1 cm Deformation Strain Apical 4 -11.4 % Apical 2 -11.0 % Apical 3 -11.0 % Global Strain -11.1 % M-Mode Dimensions EPSS 1.2 cm LA (MM) 4.1 (1.6-4.0cm) Ao Root(MM) 3.6 (2.0-3.7cm) Aortic Valve AoV Vmax 1.4 m/s Ao Peak GR 7.5 mmHg LVOT Vmax 0.9 m/s AoV VTI 0.3 m Ao Mean GR 4.8 mmHg LVOT VTI 0.22 m ROMEO (VMAX) 3.11 cm2 ROMEO (VTI) 3.6 cm2 Mitral Valve MV E Vmax 64.1 cm/s DECEL Time 162 ms MV A Vmax 133.4 cm/s P 1/2 T 50 ms E/A ratio 0.5 MVA (PHT) 4.4 cm2 TDI E/E' Medial 13.1 E/E' Lateral 11.6 Medial E' Peak V 4.89 cm/s Lateral E' Peak V 5.54 cm/s Pulmonary Valve PV Vmax 0.9 m/s PV Mean GR 2.2 mmHg PV Peak GR 3.4 mmHg Tricuspid Valve TR Vmax 2.6 m/s RAP (EST) 3 mmHg RVSP 29.3 mmHg TR Peak GR 26.3 mmHg Left Ventricle The left ventricle is normal size. Reduced GLS -11.0% There is global hypokinesis of the left ventricle. There is normal left ventricular wall thickness. LVEF is 30-35%. Indeterminate diastolic dysfunction. Right Ventricle The right ventricle is normal size. The right ventricular systolic function is normal. Device lead is present in the right ventricle. Atria The left atrium size is normal. The right atrium is moderately dilated. Aortic Valve Aortic valve is trileaflet and opens well. No aortic regurgitation is present. There is no aortic valvular stenosis. Mitral Valve The mitral valve is normal in structure. There is trace of mitral valve regurgitation noted. There is no mitral valve stenosis. Tricuspid Valve The tricuspid valve is normal in structure. There is trace of tricuspid valve regurgitation noted. Pulmonic Valve Pulmonic valve is not well visualized. There is no pulmonic valvular regurgitation. Great Vessels The aortic root is normal in size. The IVC is normal in size and collapses >50% with inspiration. Pericardium There is no pericardial effusion. Other Information Quality : Fair Conclusion The left ventricle is normal size. LVEF is 30-35% with global hypokinesis and anteroseptal and apical akinesis. Indeterminate diastolic dysfunction. The right ventricular systolic function is normal. Device lead is present in the right ventricle. Both atria are normal in size. No hemodynamically significant valvular abnormalities. There is no pericardial effusion.
[2025-06-11] MEDS: WARFARIN SODIUM 10 MG TABLET PO SCH (17:19)
--- NOTE | 2025-06-11 17:30 | NUR ---
SPOKE WITH HALI AT THIS TIME. REPORT GIVEN.
[2025-06-11 17:50] VITALS: O2SAT 96
--- NOTE | 2025-06-11 17:50 | NUR ---
UNIT ARRIVAL RECEIVED PATIENT VIA STRETCHER. AWAKE, ALERT AND ORIENTED. NO SIGNS OF DISTRESS NOTED. NO COMPLAINTS OF PAIN AT THIS TIME. VITALS BLOOD PRESSURE 141/60, HR 64, RR 16, SPO2-96% RA. BED LOCKED IN LOWEST POSITION. CALL LIGHT WITHIN REACH. PATIENT INSTRUCTED ON IMPORTANCE OF CALLING FOR HELP WITH AMBULATION ASSISTANCE.
[2025-06-11 17:51] VITALS: BP 141/60; PULSE 64; RESP 16
[2025-06-11 20:00] VITALS: BP_SYST 110; BP_SYST 134; BP_SYST 155; BP_DIAS 100; BP_DIAS 71; BP_DIAS 83; PULSE 65; PULSE 78; PULSE 93; RESP 20; TEMP 97.4
[2025-06-12] VITALS (8 sets, daily range): BP systolic 101–113; BP diastolic 61–75; PULSE 66–71; RESP 14–20; TEMP 97.9–98.3; O2SAT 95–98
[2025-06-12 05:02] LABS: NUCLEATED RED BLOOD CELLS 0.0 % (0.0-0.19); PLATELET COUNT (AUTO) 148.0 K/uL (130-400); RED BLOOD CELL COUNT(AUTO) 5.07 MIL/uL (4.50-6.20); RED CELL DISTRIBUTION WIDTH 14.2 % (11.0-15.5); WHITE BLOOD COUNT (AUTO) 6.9 K/uL (4.8-10.8)
[2025-06-12 05:18] LABS: ASPARTATE AMINOTRANSFERASE 13.0 U/L (10-37); CREATININE 0.9 mg/dL (0.5-1.3); GLOMERULAR FILTR. RATE CALC 91.0 mL/min (>90); GLUCOSE,RANDOM 109.0 mg/dL (70-105); SODIUM SERUM 135.0 mmol/L (136-145); TOTAL PROTEIN, SERUM 6.8 g/dL (6.0-8.3); UREA NITROGEN, BLOOD 15.0 mg/dL (7-18)
[2025-06-12] MEDS: LACTULOSE 20 GM/30 ML UDCUP PO PRN (08:54)
--- NOTE | 2025-06-12 10:00 | NUR ---
Order received and patient and spouse interviewed. Patient had sudden onset dizziness, which he describes as the room spinning. Asked patient if he recently had a cold, sinus congestion, fall with head injury, all of which patient denied. Spouse stated he had liquid placed in his ears about 6 months ago with exacerbation of these symptoms however this was the worst it had gotten. Patient ambulated with side head movements as well as head up and down with no symptoms of vertigo. Recommended patient request a referral to OP PT for continued evaluation of dizziness. He was also noted with minimally impaired balance with gait however was able to recover. DC from PT.
--- NOTE | 2025-06-12 13:49 | NUR ---
MRI RENAE CALLED FOR INTERROGATION OF DEFIBRILLATOR DEVICE. PER RENAE REP, THE PATIENTS DEVICE HAS ALREADY BEEN INTERROGATED. THE PAPERWORK FOR THE MRI HAS BEEN COMPLETE. [facility] AND RENA[facility] NEED TO COME TOGETHER IN ORDER TO GET THE MRI DONE. [facility] CALLED AND NOTIFIED OF THE SITUATION. THEY WILL CALL AND SEE WHEN THE BUSINESS SEGMENT MANAGER DOCTOR CAN DO THE PROCEDURE SO THAT I CAN NOTIFY THE [facility] TEST ENGINE EVALUATOR
[2025-06-12] MEDS: WARFARIN SODIUM 2 MG TAB PO SCH (16:47)
--- NOTE | 2025-06-12 20:23 | PN ---
[facility] PROGRESS NOTE Date Patient Seen: Jun 12, 2025 Time of Visit: 20:23 Supervising Physician: Dr Dee (cardiology) Primary Care Physician: Dr. Hina Marte Outpatient Specialists: Dr. Ed Dee Inpatient Consults: Tele neuro, Dr. Ed Dee (cardiology) PROBLEM LIST: Dizziness, vertigo vs acute ischemic stroke Diabetes mellitus with hyperglycemia Electrolyte derangement syndrome: Hypomagnesemia Mild protein calorie malnutrition Anemia of chronic disease Glucosuria Acute on chronic kidney disease, GFR 80 r/o Chronic Problem List: CAD s/p cardiac stents and pacer/AICD CHF DM type 2 HTN [place] Orthostatic hypotension INTERVAL HISTORY: Patient was seen and examined resting in bed with the head of the bed elevated, family members were present. Patient awake alert and oriented as well as appears in no acute distress. Vital signs stable. Afebrile. Consulted patient's welt butter hand, Dr. Dee, to assisted determine if the patient has AICD/pacemaker is MRI compatible. Additionally, if unable to locate interrogation of device when patient arrived in the emergency department we will order interrogation of the AICD pacemaker. Antibiotic adjustment Levaquin switched to doxycycline. Orthostatic vital signs we will be taken. Reviewed and discussed lab results medications vital signs with patient and family members present. Discussion questions or concerns. Further orders per course of stay. A.m. labs ordered. REVIEW OF SYSTEMS: 12 point ROS reviewed with patient. Pertinent positives mentioned above. Otherwise negative. PHYSICAL EXAM: GENERAL: Alert, weak, awake oriented x 3 HEENT: EOMI, Sclera non icteric, moist mucosa NECK: Supple, no JVD, trachea midline LUNGS: Clear breath sounds bilaterally. No wheezes HEART: Regular rate and rhythm. Normal S1 and S2, without murmurs ABD: Abdomen soft, nontender. Bowel sounds present EXT: No clubbing cyanosis or edema NEURO: Alert and oriented X3, follows commands Vital Signs (last 8hr) Date Time Temp Pulse Resp B/P (MAP) Pulse Ox O2 Delivery O2 Flow Rate FiO2 06/12/25 16:00 97.9 67 14 105/75 99 Room Air 06/12/25 12:58 98 Room Air* 0 21 LABS: Hematology Labs: Test 06/12/25 04:25 06/11/25 06:02 Range/Units White Blood Count 6.9 4.8-10.8 K/uL Red Blood Count 5.07 4.50-6.20 MIL/uL Hemoglobin 14.2 14.0-18.0 g/dL Hematocrit 41.7 L 42-54 % Mean Corpuscular Volume 82.2 79-99 fL Mean Corpuscular Hemoglobin 28.0 27.0-33.0 pg Mean Corpuscular Hemoglobin Concent 34.1 32.0-36.0 g/dL Red Cell Distribution Width 14.2 11.0-15.5 % Platelet Count 148 130-400 K/uL Mean Platelet Volume 10.5 7.5-10.5 fL Nucleated Red Blood Cells 0.0 0.0-0.19 % Erythrocyte Sedimentation Rate 10 0-20 MM/HR Chemistry Labs: Test 06/12/25 19:39 06/12/25 04:25 06/11/25 06:02 Range/Units Whole Blood Glucose 145 H 70-110 MG/DL Sodium Level 135 L 136-145 mmol/L Potassium Level 3.8 3.5-5.1 mmol/L Chloride Level 104 101-111 mmol/L Carbon Dioxide Level 23 21-32 mmol/L Blood Urea Nitrogen 15 7-18 mg/dL Creatinine 0.9 0.5-1.3 mg/dL Glomerular Filtration Rate Calc 91 >90 mL/min Random Glucose 109 H 70-105 mg/dL Total Calcium 8.3 L 8.5-10.1 mg/dL Magnesium Level 1.80 1.80-2.40 mg/dL Total Bilirubin 0.6 0.2-1.0 mg/dL Aspartate Amino Transf (AST/SGOT) 13 10-37 U/L Alanine Aminotransferase (ALT/SGPT) 12 12-78 U/L Alkaline Phosphatase 69 50-136 U/L Total Protein 6.8 6.0-8.3 g/dL Albumin 3.1 L 3.5-5.0 g/dL Phosphorus Level 2.8 2.5-4.9 mg/dL Troponin I High Sensitivity 17 4-75 ng/L B-Type Natriuretic Peptide 243 H 0-100 pg/mL Lipase 20 16-77 U/L Vitamin B12 Level 208 193-986 pg/mL Folic Acid (LAB) 17.30 2-20 ng/mL Thyroid Stimulating Hormone (TSH) 3.12 0.36-3.74 uIU/mL Coagulation Labs: Test 06/11/25 06:02 Range/Units Prothrombin Time 27.6 H 9.6-11.6 SEC Prothromb Time International Ratio 2.89 H 0.85-1.15 DIAGNOSTICS / RADIOLOGY RESULTS: [ ] PLAN -Admit to PCCU with continuous telemetry monitoring and fall precautions. -Follow tele neuro's recommendations: Systolic blood pressure > 140 and <180. CBC, CMP, urine drug screen, UA, ESR, hemoglobin A1c, lipid panel, MRI without contrast (if MRI negative for stroke consider marisol-hallpike maneuver), PT/OT esteban luation, prn meclizine. -Meclizine 25 mg p.o. TID X 1 day. -Start Levaquin 500 mg IV daily. -Aspirin 324 mg p.o. now then aspirin 81 mg p.o. daily. -Atorvastatin 40 mg IV. -Reconcile home medications: Lasix, losartan, metoprolol, prednisone, statin, spironolactone, warfarin. -Hold home medication Jardiance. -Hold patient's Lasix for tonight. ED gave NS 500 mL bolus. -PRN medications for: Pain management, fever, hypertension, N/V, constipation. -Glucometer checks AC & HS needed with insulin regular sliding scale coverage as needed. -Monitor electrolytes and treat accordingly PRN -AM labs. -GI and DVT prophylaxis -Further plan/orders per hospitalization course. NEURO: Minimize central acting medications as possible. Maintain fall precautions, adequate lighting during the day PULMONARY: Supplemental 02 as needed. Maintain aspiration precautions at all times CARDIOVASCULAR: Follow hemodynamics. Vital signs per facility protocol GI & NUTRITION: Continue with nutritional support. Continue stool softeners and laxatives as needed. KIDNEYS & ELECTROLYTES: Strict monitoring of intake, output and overall fluid balance. Avoid nephrotoxic medications to the extent possible. Medications to be dosed according to renal function. Monitor electrolytes and replace as needed ENDOCRINE: Maintain blood glucose between 100-180 at all times. Hypoglycemia protocol in place INFECTIOUS DISEASE: Trend temperature, WBC and procalcitonin level Follow cultures, deescalate antibiotics as soon as possible. Panculture if new onset fever ONCOLOGY/HEMATOLOGY/COAGULATION: Monitor for s/s of bleeding Monitor hemoglobin, coagulation studies as needed SKIN: Pressure ulcer prevention per facility protocol Specialty mattress ORTHO/REHAB: Continue PT/OT Prophylaxis: Continue GI and DVT prophylaxis Code Status: Full Resuscitation Disposition: TBEVELYN BEASLEY [facility] Jun 12, 2025 20:23
[2025-06-12] MEDS: DOXYCYCLINE 100MG+NS 250ML 250 ML IV SCH (21:13)
[2025-06-13] VITALS (9 sets, daily range): BP systolic 104–121; BP diastolic 52–78; PULSE 63–102; RESP 14–18; TEMP 97.8–98.1; O2SAT 95–99
--- NOTE | 2025-06-13 00:01 | CONS ---
CONSULT NOTE: CARDIOLOGY Reason for consult: Dizziness HPI/story at presentation: This is a pleasant 69-year-old male with past medical history as below presents with complaints of dizziness, possible acute CVA being considered in the differential and MRI was ordered. Cardiology consulted for device evaluation. MRI. Subjective: Past medical history: See below Allergies, Meds See chart Review of systems Review of Systems Constitutional: Negative for chills and fever. HENT: Negative for ear discharge and ear pain. Eyes: Negative for photophobia and discharge. Respiratory: Negative for cough, sputum production and stridor. Cardiovascular: Negative for chest pain and palpitations. Gastrointestinal: Negative for diarrhea and vomiting. Genitourinary: Negative for frequency. Musculoskeletal: Negative for myalgias. Skin: Negative for rash. Neurological: Negative for focal weakness and seizures. Endo/Heme/Allergies: Negative for polydipsia. Psychiatric/Behavioral: Negative for hallucinations. Vitals see chart PHYSICAL EXAMINATION GENERAL: The patient is alert and oriented*3 HEENT: Nonicteric sclerae, non traumatic HEART: Regular rate and rhythm with no murmurs LUNGS: Clear to auscultation bilaterally ABDOMEN: No acute issues, non tender GENITAL, RECTAL: deferred SKIN: No rash NEUROLOGIC: NFND EXTREMITIES: No edema ASSESSMENT PACEMAKER EVALUATION At presentation For MRI CARDIOMYOPATHY, CARDIAC THROMBUS Anticoagulation with Coumadin in the past POSSIBLE CVA At presentation, MRI ordered, 07/2024 CORONARY DISEASE Previous history of PCI DEVICE IN SITU Normal function, 09/2024 CARDIOMYOPATHY? On spironolactone and Lasix losartan, metoprolol 03/2024 EF 30 to 35%, 07/2024 ACUTE ON CHRONIC KIDNEY DISEASE At presentation HYPERTENSION, HYPERLIPIDEMIA, PREDIABETES CORE MEASURES pending OTHER MEDICAL PROBLEMS Protein calorie malnutrition, glycosuria Anemia of chronic disease PLAN 06/12/2025 this is a pleasant 69-year-old male with past medical history presenting with TIA-like features but MRI pending. Device interrogation pending. Further recommendations post. Seen and examined 06/12/2025 at around 8 PM. ATTESTATION I was involved substantially in the care of this patient Number and complexity of problems addressed: 1 acute illness with systemic features Amount and or complexity of data Review of prior external note(s) from each unique source: 2+ Ordering of each unique test : 0 Review of the result(s) of each unique test: 2+ Assessment requiring an independent historian(s): No Independent interpretation of test performed by another MD/QHCP/appropriate source (not separately reported) : No Discussion of management or test interpretation with external MD/QHCP/appropriate source (not separately reported) : No Risk status (cardiac, billing related): Moderate JAIRO HAYNES MD Jun 13, 2025 00:01
--- NOTE | 2025-06-13 08:15 | NUR ---
MESSAGED DR WHITE PT REQUIRES SIGNATURE FOR mRI
--- NOTE | 2025-06-13 12:42 | PN ---
CONSULT NOTE: CARDIOLOGY Reason for consult: Dizziness HPI/story at presentation: This is a pleasant 69-year-old male with past medical history as below presents with complaints of dizziness, possible acute CVA being considered in the differential and MRI was ordered. Cardiology consulted for device evaluation. MRI. Subjective: Past medical history: See below Allergies, Meds See chart Review of systems Review of Systems Constitutional: Negative for chills and fever. HENT: Negative for ear discharge and ear pain. Eyes: Negative for photophobia and discharge. Respiratory: Negative for cough, sputum production and stridor. Cardiovascular: Negative for chest pain and palpitations. Gastrointestinal: Negative for diarrhea and vomiting. Genitourinary: Negative for frequency. Musculoskeletal: Negative for myalgias. Skin: Negative for rash. Neurological: Negative for focal weakness and seizures. Endo/Heme/Allergies: Negative for polydipsia. Psychiatric/Behavioral: Negative for hallucinations. Vitals see chart PHYSICAL EXAMINATION GENERAL: The patient is alert and oriented*3 HEENT: Nonicteric sclerae, non traumatic HEART: Regular rate and rhythm with no murmurs LUNGS: Clear to auscultation bilaterally ABDOMEN: No acute issues, non tender GENITAL, RECTAL: deferred SKIN: No rash NEUROLOGIC: NFND EXTREMITIES: No edema ASSESSMENT PACEMAKER EVALUATION At presentation For MRI CARDIOMYOPATHY, CARDIAC THROMBUS Anticoagulation with Coumadin in the past POSSIBLE CVA At presentation, MRI ordered, 07/2024 CORONARY DISEASE Previous history of PCI DEVICE IN SITU Normal function, 09/2024 CARDIOMYOPATHY? On spironolactone and Lasix losartan, metoprolol 03/2024 EF 30 to 35%, 07/2024 ACUTE ON CHRONIC KIDNEY DISEASE At presentation HYPERTENSION, HYPERLIPIDEMIA, PREDIABETES CORE MEASURES pending OTHER MEDICAL PROBLEMS Protein calorie malnutrition, glycosuria Anemia of chronic disease PLAN 06/12/2025 this is a pleasant 69-year-old male with past medical history presenting with TIA-like features but MRI pending. Device interrogation pending. Further recommendations post. Seen and examined 06/12/2025 at around 8 PM. 06/13/2025 doing well, distress improvement would restart home regimen of Coumadin, last INR was therapeutic, repeat INR tomorrow. MRI was pending. Device check was within normal limits. Can proceed with MRI from a cardiac standpoint. Seen and examined 06/13/2025 at around 12:40 PM ATTESTATION I was involved substantially in the care of this patient Number and complexity of problems addressed: 1 acute illness with systemic features Amount and or complexity of data Review of prior external note(s) from each unique source: 2+ Ordering of each unique test : 0 Review of the result(s) of each unique test: 2+ Assessment requiring an independent historian(s): No Independent interpretation of test performed by another MD/QHCP/appropriate source (not separately reported) : No Discussion of management or test interpretation with external MD/QHCP/appropriate source (not separately reported) : No Risk status (cardiac, billing related): Moderate Vitals/Labs Vital Signs Date Time Temp Pulse Resp B/P (MAP) Pulse Ox O2 Delivery O2 Flow Rate FiO2 06/13/25 11:55 98.1 74 14 107/66 97 Room Air 06/13/25 07:45 0 21 Medications Current Medications Sodium Chloride 500 ml @ 0 mls/hr Q0M ONCE IV Last administered on 06/10/25at 11:54; Start 06/10/25 at 11:30; Stop 06/10/25 at 11:37; Status DC Meclizine HCl 25 mg ONCE ONCE PO Last administered on 06/10/25at 11:54; Start 06/10/25 at 11:30; Stop 06/10/25 at 11:37; Status DC Lorazepam 0.5 mg ONCE ONCE IVP; Start 06/10/25 at 13:00; Stop 06/10/25 at 13:01; Status DC Famotidine 20 mg BID PO Last administered on 06/13/25at 09:48; Start 06/10/25 at 21:00; Stop 07/10/25 at 20:59 Diphenhydramine HCl 25 mg Q4H PRN PO; Start 06/10/25 at 16:00; Stop 07/10/25 at 15:59 Diphenhydramine HCl 25 mg Q6H PRN IV; Start 06/10/25 at 16:00; Stop 07/10/25 at 15:59 Acetaminophen 650 mg Q6H PRN PO; Start 06/10/25 at 16:00; Stop 07/10/25 at 15:59 Acetaminophen 650 mg Q4H PRN PO; Start 06/10/25 at 16:00; Stop 07/10/25 at 15:59 Ondansetron HCl 4 mg Q6H PRN IV; Start 06/10/25 at 16:00; Stop 07/10/25 at 15:59 Zolpidem Tartrate 5 mg HS PRN PO; Start 06/10/25 at 16:00; Stop 07/10/25 at 15:59 Al Hydroxide/Mg Hydroxide 30 ml Q6H PRN PO; Start 06/10/25 at 16:00; Stop 07/10/25 at 15:59 Lactulose 20 gm BID PRN PO Last administered on 06/12/25at 08:54; Start 06/10/25 at 16:00; Stop 07/10/25 at 15:59 Nitroglycerin 0.4 mg PROTOCOL PRN SL; Start 06/10/25 at 16:00; Stop 07/10/25 at 15:59 Guaifenesin/ Dextromethorphan 10 ml Q4H PRN PO; Start 06/10/25 at 16:00; Stop 07/10/25 at 15:59 Famotidine 20 mg BID IV; Start 06/10/25 at 21:00; Stop 06/10/25 at 16:06; Status DC Guaifenesin 200 mg Q4H PRN PO; Start 06/10/25 at 16:00; Stop 07/10/25 at 15:59 Loperamide HCl 2 mg Q6H PRN PO; Start 06/10/25 at 16:00; Stop 07/10/25 at 15:59 Docusate Sodium 100 mg BID PRN PO Last administered on 06/12/25at 08:55; Start 06/10/25 at 16:00; Stop 07/10/25 at 15:59 Polyethylene Glycol 17 gm DAILY PRN PO Last administered on 06/12/25at 08:54; Start 06/10/25 at 16:00; Stop 07/10/25 at 15:59 Alprazolam 0.5 mg Q6H PRN PO; Start 06/10/25 at 16:00; Stop 07/10/25 at 15:59 Lidocaine HCl/Al Hydroxide/Mg Hydroxide/ Dicyclomine HCl 20ML OR AD MAALOX P... Q6H PRN PO; Start 06/10/25 at 16:00; Stop 07/10/25 at 15:59 Artificial Tears 1 DROP Q2H PRN OP; Start 06/10/25 at 16:00; Stop 07/10/25 at 15:59 Benzocaine 1 each Q2H PRN MM; Start 06/10/25 at 16:00; Stop 07/10/25 at 15:59 Levofloxacin/ Dextrose 100 ml @ 100 mls/hr Q24H IV Last administered on 06/11/25at 23:22; Start 06/10/25 at 22:00; Stop 06/12/25 at 20:27; Status DC Atorvastatin Calcium 40 mg HS PO Last administered on 06/12/25at 20:32; Start 06/10/25 at 21:50; Stop 07/10/25 at 21:49 Aspirin 324 mg ONCE ONCE PO Last administered on 06/10/25at 22:13; Start 06/10/25 at 22:00; Stop 06/10/25 at 22:03; Status DC Meclizine HCl 25 mg TID PO Last administered on 06/11/25at 21:41; Start 06/11/25 at 05:00; Stop 06/12/25 at 09:00; Status DC Furosemide 20 mg DAILY PO Last administered on 06/13/25at 09:48; Start 06/11/25 at 09:00; Stop 07/11/25 at 08:59 Losartan Potassium 50 mg DAILY PO Last administered on 06/13/25at 09:48; Start 06/11/25 at 09:00; Stop 07/11/25 at 08:59 Metoprolol Succinate 50 mg DAILY PO Last administered on 06/13/25at 09:48; Start 06/11/25 at 09:00; Stop 07/11/25 at 08:59 Spironolactone 25 mg DAILY PO Last administered on 06/13/25at 09:47; Start 06/11/25 at 09:00; Stop 07/11/25 at 08:59 Warfarin Sodium 10 mg QMOFR@1600 PO; Start 06/14/25 at 16:00; Stop 06/21/25 at 15:59 Pantoprazole Sodium 40 mg DAILY PO Last administered on 06/13/25at 09:48; Start 06/11/25 at 09:00; Stop 07/11/25 at 08:59 Miscellaneous Medication 1 tab AD PO; Start 06/11/25 at 02:30; Stop 06/11/25 at 03:19; Status DC Miscellaneous Medication 2 tab AD PO; Start 06/11/25 at 02:30; Stop 06/11/25 at 03:20; Status DC Aspirin 81 mg DAILY PO Last administered on 06/13/25at 09:47; Start 06/11/25 at 09:00; Stop 07/11/25 at 08:59 Pharmacy Profile Note Q12H MISC; Start 06/11/25 at 07:30; Stop 06/11/25 at 06:13; Status DC Warfarin Sodium 10 mg QTUSA@1600 PO Last administered on 06/11/25at 17:19; Start 06/11/25 at 16:00; Stop 06/12/25 at 15:59; Status DC Warfarin Sodium 4 mg QWE@1600 PO Last administered on 06/12/25at 16:47; Start 06/12/25 at 16:00; Stop 06/19/25 at 15:59 Warfarin Sodium 8 mg QTH@1600 PO; Start 06/13/25 at 16:00; Stop 06/20/25 at 15:59 Doxycycline Hyclate 250 ml @ 125 mls/hr Q12H IV Last administered on 06/13/25at 07:41; Start 06/12/25 at 20:30; Stop 06/22/25 at 20:29 JAIRO HAYNES MD Jun 13, 2025 12:42
[2025-06-13] MEDS: WARFARIN SODIUM 2 MG TAB PO SCH (16:56)
--- NOTE | 2025-06-13 20:43 | PN ---
[facility] PROGRESS NOTE Date Patient Seen: Jun 13, 2025 Time of Visit: 20:43 Supervising Physician: Dr. Junior Monroy Primary Care Physician: Dr. Hina Marte Outpatient Specialists: Dr. Ed Dee Inpatient Consults: Tele neuro, Dr. Ed Dee (cardiology), Dr. Kimble PROBLEM LIST: Dizziness, vertigo vs acute ischemic stroke Diabetes mellitus with hyperglycemia Electrolyte derangement syndrome: Hypomagnesemia Mild protein calorie malnutrition Anemia of chronic disease Glucosuria Chronic Problem List: CAD s/p cardiac stents and pacer/AICD CHF DM type 2 HTN [place] Orthostatic hypotension INTERVAL HISTORY: Patient examined while resting in a chair outside the bed with family members present to [facility]. Accompanied by patient's bedside nurse. Nursing staff report no adverse events occurring overnight. Patient is awake alert and oriented. Used a bedside nurses computer and discussed with patient's family inpatient diagnostic tests results CT head negative, echocardiogram results EF 30-35%, and US carotid duplex results no stenosis bilaterally. Vital signs stable patient afebrile patient negative for orthostatic blood pressures awaiting pacemaker review by Cardiology so the pacemaker can interrogated and can check to see if it MRI compatible. If it is patient's then we will have an MRI to rule in or rule out CVA occurrence and occipital area which could cause of the patient's symptoms of illness. Patient will be continued to be admitted until test is done and results are post. Further orders per course of stay. A.m. labs ordered. REVIEW OF SYSTEMS: 12 point ROS reviewed with patient. Pertinent positives mentioned above. Otherwise negative. PHYSICAL EXAM: GENERAL: Alert, weak, awake oriented x 3 HEENT: EOMI, Sclera non icteric, moist mucosa NECK: Supple, no JVD, trachea midline LUNGS: Clear breath sounds bilaterally. No wheezes HEART: Regular rate and rhythm. Normal S1 and S2, without murmurs ABD: Abdomen soft, nontender. Bowel sounds present EXT: No clubbing cyanosis or edema NEURO: Alert and oriented X3, follows commands Vital Signs (last 8hr) Date Time Temp Pulse Resp B/P (MAP) Pulse Ox O2 Delivery O2 Flow Rate FiO2 06/13/25 16:00 97.9 63 14 106/68 99 Room Air LABS: Hematology Labs: Test 06/12/25 04:25 Range/Units White Blood Count 6.9 4.8-10.8 K/uL Red Blood Count 5.07 4.50-6.20 MIL/uL Hemoglobin 14.2 14.0-18.0 g/dL Hematocrit 41.7 L 42-54 % Mean Corpuscular Volume 82.2 79-99 fL Mean Corpuscular Hemoglobin 28.0 27.0-33.0 pg Mean Corpuscular Hemoglobin Concent 34.1 32.0-36.0 g/dL Red Cell Distribution Width 14.2 11.0-15.5 % Platelet Count 148 130-400 K/uL Mean Platelet Volume 10.5 7.5-10.5 fL Nucleated Red Blood Cells 0.0 0.0-0.19 % Chemistry Labs: Test 06/13/25 20:21 06/12/25 04:25 Range/Units Whole Blood Glucose 130 H 70-110 MG/DL Bedside Glucose Comment Notified Nurse Sodium Level 135 L 136-145 mmol/L Potassium Level 3.8 3.5-5.1 mmol/L Chloride Level 104 101-111 mmol/L Carbon Dioxide Level 23 21-32 mmol/L Blood Urea Nitrogen 15 7-18 mg/dL Creatinine 0.9 0.5-1.3 mg/dL Glomerular Filtration Rate Calc 91 >90 mL/min Random Glucose 109 H 70-105 mg/dL Total Calcium 8.3 L 8.5-10.1 mg/dL Magnesium Level 1.80 1.80-2.40 mg/dL Total Bilirubin 0.6 0.2-1.0 mg/dL Aspartate Amino Transf (AST/SGOT) 13 10-37 U/L Alanine Aminotransferase (ALT/SGPT) 12 12-78 U/L Alkaline Phosphatase 69 50-136 U/L Total Protein 6.8 6.0-8.3 g/dL Albumin 3.1 L 3.5-5.0 g/dL DIAGNOSTICS / RADIOLOGY RESULTS: [ ] PLAN -Admit to PCCU with continuous telemetry monitoring and fall precautions. -Follow tele neuro's recommendations: Systolic blood pressure > 140 and <180. CBC, CMP, urine drug screen, UA, ESR, hemoglobin A1c, lipid panel, MRI without contrast (if MRI negative for stroke consider marisol-hallpike maneuver), PT/OT evaluation, prn meclizine. -Meclizine 25 mg p.o. TID X 1 day. -Start Levaquin 500 mg IV daily. -Aspirin 324 mg p.o. now then aspirin 81 mg p.o. daily. -Atorvastatin 40 mg IV. -Reconcile home medications: Lasix, losartan, metoprolol, prednisone, statin, spironolactone, warfarin. -Hold home medication Jardiance. -Hold patient's Lasix for tonight. ED gave NS 500 mL bolus. -PRN medications for: Pain management, fever, hypertension, N/V, constipation. -Glucometer checks AC & HS needed with insulin regular sliding scale coverage as needed. -Monitor electrolytes and treat accordingly PRN -AM labs. -GI and DVT prophylaxis -Further plan/orders per hospitalization course. NEURO: Minimize central acting medications as possible. Maintain fall precautions, adequate lighting during the day PULMONARY: Supplemental 02 as needed. Maintain aspiration precautions at all times CARDIOVASCULAR: Follow hemodynamics. Vital signs per facility protocol GI & NUTRITION: Continue with nutritional support. Continue stool softeners and laxatives as needed. KIDNEYS & ELECTROLYTES: Strict monitoring of intake, output and overall fluid balance. Avoid nephrotoxic medications to the extent possible. Medications to be dosed according to renal function. Monitor electrolytes and replace as needed ENDOCRINE: Maintain blood glucose between 100-180 at all times. Hypoglycemia protocol in place INFECTIOUS DISEASE: Trend temperature, WBC and procalcitonin level Follow cultures, deescalate antibiotics as soon as possible. Panculture if new onset fever ONCOLOGY/HEMATOLOGY/COAGULATION: Monitor for s/s of bleeding Monitor hemoglobin, coagulation studies as needed SKIN: Pressure ulcer prevention per facility protocol Specialty mattress ORTHO/REHAB: Continue PT/OT Prophylaxis: Continue GI and DVT prophylaxis Code Status: Full Resuscitation Disposition: EVELYN MUNSON AGACNP Jun 13, 2025 20:43
[2025-06-14] VITALS (7 sets, daily range): BP systolic 99–126; BP diastolic 55–76; PULSE 63–80; RESP 18; TEMP 97.5–98.9
[2025-06-14 05:00] LABS: NUCLEATED RED BLOOD CELLS 0.0 % (0.0-0.19); PLATELET COUNT (AUTO) 150.0 K/uL (130-400); RED BLOOD CELL COUNT(AUTO) 4.81 MIL/uL (4.50-6.20); RED CELL DISTRIBUTION WIDTH 14.4 % (11.0-15.5); WHITE BLOOD COUNT (AUTO) 6.6 K/uL (4.8-10.8)
[2025-06-14 05:36] LABS: ASPARTATE AMINOTRANSFERASE 8 U/L (10-37); CREATININE 1.0 mg/dL (0.5-1.3); GLOMERULAR FILTR. RATE CALC 80 mL/min (>90); GLUCOSE,RANDOM 106 mg/dL (70-105); SODIUM SERUM 138 mmol/L (136-145); TOTAL PROTEIN, SERUM 6.6 g/dL (6.0-8.3); UREA NITROGEN, BLOOD 18 mg/dL (7-18)
--- NOTE | 2025-06-14 10:53 | PN ---
CARDIOLOGY Reason for consult: Dizziness HPI/story at presentation: This is a pleasant 69-year-old male with past medical history as below presents with complaints of dizziness, possible acute CVA being considered in the differential and MRI was ordered. Cardiology consulted for device evaluation. MRI. Subjective: Past medical history: See below Allergies, Meds See chart Review of systems Review of Systems Constitutional: Negative for chills and fever. HENT: Negative for ear discharge and ear pain. Eyes: Negative for photophobia and discharge. Respiratory: Negative for cough, sputum production and stridor. Cardiovascular: Negative for chest pain and palpitations. Gastrointestinal: Negative for diarrhea and vomiting. Genitourinary: Negative for frequency. Musculoskeletal: Negative for myalgias. Skin: Negative for rash. Neurological: Negative for focal weakness and seizures. Endo/Heme/Allergies: Negative for polydipsia. Psychiatric/Behavioral: Negative for hallucinations. Vitals see chart PHYSICAL EXAMINATION GENERAL: The patient is alert and oriented*3 HEENT: Nonicteric sclerae, non traumatic HEART: Regular rate and rhythm with no murmurs LUNGS: Clear to auscultation bilaterally ABDOMEN: No acute issues, non tender GENITAL, RECTAL: deferred SKIN: No rash NEUROLOGIC: NFND EXTREMITIES: No edema ASSESSMENT PACEMAKER EVALUATION At presentation For MRI CARDIOMYOPATHY, CARDIAC THROMBUS Anticoagulation with Coumadin in the past POSSIBLE CVA At presentation, MRI ordered, 07/2024 CORONARY DISEASE Previous history of PCI DEVICE IN SITU Normal function, 09/2024 CARDIOMYOPATHY? On spironolactone and Lasix losartan, metoprolol 03/2024 EF 30 to 35%, 07/2024 ACUTE ON CHRONIC KIDNEY DISEASE At presentation HYPERTENSION, HYPERLIPIDEMIA, PREDIABETES CORE MEASURES pending OTHER MEDICAL PROBLEMS Protein calorie malnutrition, glycosuria Anemia of chronic disease PLAN 06/12/2025 this is a pleasant 69-year-old male with past medical history presenting with TIA-like features but MRI pending. Device interrogation pending. Further recommendations post. Seen and examined 06/12/2025 at around 8 PM. 06/13/2025 doing well, distress improvement would restart home regimen of Coumadin, last INR was therapeutic, repeat INR tomorrow. MRI was pending. Device check was within normal limits. Can proceed with MRI from a cardiac standpoint. Seen and examined 06/13/2025 at around 12:40 PM 06/14/2025 asymptomatic at this time, MRI still pending, will need an INR check, Coumadin has been restarted. We will follow up post MRI. Seen and examined 06/14/2025 at11 AM ATTESTATION I was involved substantially in the care of this patient Number and complexity of problems addressed: 1 acute illness with systemic features Amount and or complexity of data Review of prior external note(s) from each unique source: 2+ Ordering of each unique test : 0 Review of the result(s) of each unique test: 2+ Assessment requiring an independent historian(s): No Independent interpretation of test performed by another MD/QHCP/appropriate source (not separately reported) : No Discussion of management or test interpretation with external MD/QHCP/appropriate source (not separately reported) : No Risk status (cardiac, billing related): Moderate Vitals/Labs Vital Signs Date Time Temp Pulse Resp B/P (MAP) Pulse Ox O2 Delivery O2 Flow Rate FiO2 06/14/25 08:29 80 18 120/72 94 Room Air 06/14/25 08:26 99.0 06/13/25 20:10 0 21 Laboratory Tests 06/14/25 04:37 Medications Current Medications Sodium Chloride 500 ml @ 0 mls/hr Q0M ONCE IV Last administered on 06/10/25at 11:54; Start 06/10/25 at 11:30; Stop 06/10/25 at 11:37; Status DC Meclizine HCl 25 mg ONCE ONCE PO Last administered on 06/10/25at 11:54; Start 06/10/25 at 11:30; Stop 06/10/25 at 11:37; Status DC Lorazepam 0.5 mg ONCE ONCE IVP; Start 06/10/25 at 13:00; Stop 06/10/25 at 13:01; Status DC Famotidine 20 mg BID PO Last administered on 06/14/25at 08:57; Start 06/10/25 at 21:00; Stop 07/10/25 at 20:59 Diphenhydramine HCl 25 mg Q4H PRN PO; Start 06/10/25 at 16:00; Stop 07/10/25 at 15:59 Diphenhydramine HCl 25 mg Q6H PRN IV; Start 06/10/25 at 16:00; Stop 07/10/25 at 15:59 Acetaminophen 650 mg Q6H PRN PO; Start 06/10/25 at 16:00; Stop 07/10/25 at 15:59 Acetaminophen 650 mg Q4H PRN PO; Start 06/10/25 at 16:00; Stop 07/10/25 at 15:59 Ondansetron HCl 4 mg Q6H PRN IV; Start 06/10/25 at 16:00; Stop 07/10/25 at 15:59 Zolpidem Tartrate 5 mg HS PRN PO; Start 06/10/25 at 16:00; Stop 07/10/25 at 15:59 Al Hydroxide/Mg Hydroxide 30 ml Q6H PRN PO; Start 06/10/25 at 16:00; Stop 07/10/25 at 15:59 Lactulose 20 gm BID PRN PO Last administered on 06/12/25at 08:54; Start 06/10/25 at 16:00; Stop 07/10/25 at 15:59 Nitroglycerin 0.4 mg PROTOCOL PRN SL; Start 06/10/25 at 16:00; Stop 07/10/25 at 15:59 Guaifenesin/ Dextromethorphan 10 ml Q4H PRN PO; Start 06/10/25 at 16:00; Stop 07/10/25 at 15:59 Famotidine 20 mg BID IV; Start 06/10/25 at 21:00; Stop 06/10/25 at 16:06; Status DC Guaifenesin 200 mg Q4H PRN PO; Start 06/10/25 at 16:00; Stop 07/10/25 at 15:59 Loperamide HCl 2 mg Q6H PRN PO; Start 06/10/25 at 16:00; Stop 07/10/25 at 15:59 Docusate Sodium 100 mg BID PRN PO Last administered on 06/12/25at 08:55; Start 06/10/25 at 16:00; Stop 07/10/25 at 15:59 Polyethylene Glycol 17 gm DAILY PRN PO Last administered on 06/12/25at 08:54; Start 06/10/25 at 16:00; Stop 07/10/25 at 15:59 Alprazolam 0.5 mg Q6H PRN PO; Start 06/10/25 at 16:00; Stop 07/10/25 at 15:59 Lidocaine HCl/Al Hydroxide/Mg Hydroxide/ Dicyclomine HCl 20ML OR AD MAALOX P... Q6H PRN PO; Start 06/10/25 at 16:00; Stop 07/10/25 at 15:59 Artificial Tears 1 DROP Q2H PRN OP; Start 06/10/25 at 16:00; Stop 07/10/25 at 15:59 Benzocaine 1 each Q2H PRN MM; Start 06/10/25 at 16:00; Stop 07/10/25 at 15:59 Levofloxacin/ Dextrose 100 ml @ 100 mls/hr Q24H IV Last administered on 06/11/25at 23:22; Start 06/10/25 at 22:00; Stop 06/12/25 at 20:27; Status DC Atorvastatin Calcium 40 mg HS PO Last administered on 06/13/25at 20:10; Start 06/10/25 at 21:50; Stop 07/10/25 at 21:49 Aspirin 324 mg ONCE ONCE PO Last administered on 06/10/25at 22:13; Start 06/10/25 at 22:00; Stop 06/10/25 at 22:03; Status DC Meclizine HCl 25 mg TID PO Last administered on 06/11/25at 21:41; Start 06/11/25 at 05:00; Stop 06/12/25 at 09:00; Status DC Furosemide 20 mg DAILY PO Last administered on 06/14/25at 08:58; Start 06/11/25 at 09:00; Stop 07/11/25 at 08:59 Losartan Potassium 50 mg DAILY PO Last administered on 06/14/25at 08:58; Start 06/11/25 at 09:00; Stop 07/11/25 at 08:59 Metoprolol Succinate 50 mg DAILY PO Last administered on 06/14/25at 08:57; Start 06/11/25 at 09:00; Stop 07/11/25 at 08:59 Spironolactone 25 mg DAILY PO Last administered on 06/14/25at 08:58; Start 06/11/25 at 09:00; Stop 07/11/25 at 08:59 Warfarin Sodium 10 mg QMOFR@1600 PO; Start 06/14/25 at 16:00; Stop 06/21/25 at 15:59 Pantoprazole Sodium 40 mg DAILY PO Last administered on 06/14/25at 08:57; Start 06/11/25 at 09:00; Stop 07/11/25 at 08:59 Miscellaneous Medication 1 tab AD PO; Start 06/11/25 at 02:30; Stop 06/11/25 at 03:19; Status DC Miscellaneous Medication 2 tab AD PO; Start 06/11/25 at 02:30; Stop 06/11/25 at 03:20; Status DC Aspirin 81 mg DAILY PO Last administered on 06/14/25at 08:57; Start 06/11/25 at 09:00; Stop 07/11/25 at 08:59 Pharmacy Profile Note Q12H MISC; Start 06/11/25 at 07:30; Stop 06/11/25 at 06:13; Status DC Warfarin Sodium 10 mg QTUSA@1600 PO Last administered on 06/11/25at 17:19; Start 06/11/25 at 16:00; Stop 06/12/25 at 15:59; Status DC Warfarin Sodium 4 mg QWE@1600 PO Last administered on 06/12/25at 16:47; Start 06/12/25 at 16:00; Stop 06/19/25 at 15:59 Warfarin Sodium 8 mg QTH@1600 PO Last administered on 06/13/25at 16:56; Start 06/13/25 at 16:00; Stop 06/20/25 at 15:59 Doxycycline Hyclate 250 ml @ 125 mls/hr Q12H IV Last administered on 06/14/25at 08:56; Start 06/12/25 at 20:30; Stop 06/22/25 at 20:29 JAIRO HAYNES MD Jun 14, 2025 10:53
[2025-06-14 11:16] LABS: INR 1.92 (0.85-1.15)
--- NOTE | 2025-06-14 11:32 | NUR ---
MRI UPDATE: CONTACTED MRI TO ADVISE OF PENDING MRI OF BRAIN/ NO ANSWER; PER RADIOLOGY ONLY COST ESTIMATOR TODAY FOR EMERGENT SERVICES. UPDATED CHARGE NURSE WHO IS TO GET UPDATE FROM HOUSE SUP ON DATE AND TIME OF MRI.
[2025-06-14] MEDS: WARFARIN SODIUM 10 MG TABLET PO SCH (16:51)
--- NOTE | 2025-06-14 17:23 | HMCIMG ---
EXAM: MR Brain with and without Intravenous Contrast. CLINICAL HISTORY: dizziness TECHNIQUE: Multisequence, multiplanar magnetic resonance images acquired of the brain with and without intravenous contrast. CONTRAST: None COMPARISON: Study dated 06/10. FINDINGS: BRAIN: Age-related neuroparenchymal atrophy. Multiple T2W and FLAIR hyperintense foci along bilateral periventricular white matter, suggestive of small vessel ischemic changes. No restricted diffusion to indicate acute infarction. No intracranial mass or hemorrhage. No midline shift or extra-axial fluid collection. No cerebellar tonsillar ectopia. No abnormal enhancement. The central arterial and venous flow voids are patent. VENTRICLES: No hydrocephalus. ORBITS: The orbits are normal. SINUSES AND MASTOIDS: Minimal mucosal thickening along the left maxillary and sphenoid sinuses. The mastoid air cells are clear. BONES: No acute fracture or aggressive appearing osseous lesion. IMPRESSION: 1. No acute infarction, intracranial hemorrhage, or mass lesion. /[place]
--- NOTE | 2025-06-14 18:44 | DS ---
[facility] DISCHARGE SUMMARY Date Patient Seen: Jun 14, 2025 Time of Visit: 18:44 Supervising Physician: Dr. Saul Montes Primary Care Physician: Dr. Hina Marte Outpatient Specialists: Dr. Ed Dee Inpatient Consults: Tele neuro, Dr. Ed Dee (cardiology), Dr. Kimble PROBLEM LIST: Dizziness, vertigo vs acute ischemic stroke ruled out by MRI results Diabetes mellitus with hyperglycemia Electrolyte derangement syndrome: Hypomagnesemia Mild protein calorie malnutrition Anemia of chronic disease Glucosuria Chronic Problem List: CAD s/p cardiac stents and pacer/AICD CHF DM type 2 HTN MN Orthostatic hypotension HOSPITAL COURSE: The patient was admitted to the hospital and clinically worked up for vertigo, following diagnostic tests: Chest x-ray results: No acute cardiopulmonary disease processes, CT of head results: No intercranial abnormality, ultrasound carotid arterial results: No stenosis observed in either left or right carotid artery, echocardiogram results LVEF 30-35% and MRI of the brain no lesion, mass, or stroke noted. At this time in the admission process the patient has not had any dizziness or vertigo symptoms. Clinical workup has been unremarkable. Patient will referred to cloth shrinking machine operator helper's for further workup in the outpatient environment as well as primary care provider. Patient will be prescribed medications patient was currently started on as well as meclizine 12.5 mg p.o. q.8 hours for vertigo. The patient and spouse were in agreement with the discharge plan discussion neither had questions or concerns, so the patient can be discharged home with family care. HPI (per admitting provider) Mr. Florentino is a 69-year-old male with a history of CAD, CHF, MN, diabetes-type II, hypertension and orthostatic hypotension who presented to [facility] via EMS for evaluation of dizziness and vertigo ongoing for a few months. He reports that he gets a dizziness when he wakes up in the morning but usually goes away quick. This morning the dizziness did not go away which prompted the ED visit. The patient stated that he woke up in the morning today and was having severe vertigo as the room was spinning around and was feeling dizzy. The patient did not try to get up from the bed and remained in the bed. The patient reported that he has not informed his PCP or cloth shrinking machine operator helper of the dizziness. 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 CLINICAL HISTORY: dizziness TECHNIQUE: Multisequence, multiplanar magnetic resonance images acquired of the brain with and without intravenous contrast. CONTRAST: None COMPARISON: Study dated 06/10. FINDINGS: BRAIN: Age-related neuroparenchymal atrophy. Multiple T2W and FLAIR hyperintense foci along bilateral periventricular white matter, suggestive of small vessel ischemic changes. No restricted diffusion to indicate acute infarction. No intracranial mass or hemorrhage. No midline shift or extra-axial fluid collection. No cerebellar tonsillar ectopia. No abnormal enhancement. The central arterial and venous flow voids are patent. VENTRICLES: No hydrocephalus. ORBITS: The orbits are normal. SINUSES AND MASTOIDS: Minimal mucosal thickening along the left maxillary and sphenoid sinuses. The mastoid air cells are clear. BONES: No acute fracture or aggressive appearing osseous lesion. IMPRESSION: 1. No acute infarction, intracranial hemorrhage, or mass lesion. /[place] DICTATED BY: YUNG GRANADOS Jr., MD DATE: 06/14/251821 ELECTRONICALLY SIGNED BY: YUNG GRANADOS Jr., MD DATE: 06/14/251821 DISCHARGE MEDICATIONS: Pt hemodynamically stable and afebrile at time of discharge. PCP notified of patients admission, hospital course and discharge. PHYSICAL EXAM: GENERAL: Alert, weak, awake oriented x 3 HEENT: EOMI, Sclera non icteric, moist mucosa NECK: Supple, no JVD, trachea midline LUNGS: Clear breath sounds bilaterally. No wheezes HEART: Regular rate and rhythm. Normal S1 and S2, without murmurs ABD: Abdomen soft, nontender. Bowel sounds present EXT: No clubbing cyanosis or edema NEURO: Alert and oriented X3, follows commands FOLLOW-UP: Dr. Hina Marte Follow-up with PCP in 2-3 days RECOMMENDATIONS: See Discharge Instructions This case was seen and discussed with my supervising physician. More than 50 minutes spent on discharge process, including evaluation of the patient, discussion with nursing staff, medication reconciliation and follow-up appointments EVELYN NOLEN AGACNP Jun 14, 2025 18:44
--- NOTE | 2025-06-14 19:39 | NUR ---
DISCHARGE: PATIENT DISCHARGE, IV REMOVED INTACT. TELEPACK REMOVED. ALL BELONGINGS GATHERED BY PATIENT AND TAKEN BY SPOUSE. EDUCATION PROVIDED OF FOLLOW UP APPOINTMENTS AND MEDICATIONS.ALL QUESTIONS AND CONCERNS ANSWERED. PATIENT TAKEN DOWN VIA WHEELCHAIR ALERT AND ORIENTED X 4 TO PERSONAL VEHICLE.
== END 2025-06-14 19:20 | disposition home or self-care (01) | DRG 641 ==
LOC: EDH 10:55 → OBSVTOIN 15:45 → EDHIP 15:45 → INTOOBSV 15:45 → UNDOADMOB 15:45 → EDHIP 06-11 17:58 → 4CH 06-11 17:58 → OBSVTOIN 06-13 11:44
PROVIDERS: ADMIT Internal Medicine Critical Care Medicine; ATTEND Internal Medicine Critical Care Medicine
DX: E86.0 Dehydration (principal); E44.1 Mild protein-calorie malnutrition; I13.0 Hypertensive heart and chronic kidney disease with heart failure and stage 1 through stage 4 chronic kidney disease, or unspecified chronic kidney disease; I42.9 Cardiomyopathy, unspecified; D63.1 Anemia in chronic kidney disease; I50.9 Heart failure, unspecified; N30.00 Acute cystitis without hematuria; E11.22 Type 2 diabetes mellitus with diabetic chronic kidney disease; N18.9 Chronic kidney disease, unspecified; Z68.35 Body mass index [BMI] 35.0-35.9, adult; R42 Dizziness and giddiness; I95.1 Orthostatic hypotension; K59.00 Constipation, unspecified; E83.42 Hypomagnesemia; I25.10 Atherosclerotic heart disease of native coronary artery without angina pectoris; E78.5 Hyperlipidemia, unspecified; E11.65 Type 2 diabetes mellitus with hyperglycemia; Z79.82 Long term (current) use of aspirin; Z95.5 Presence of coronary angioplasty implant and graft; Z95.810 Presence of automatic (implantable) cardiac defibrillator
CPT/HCPCS: 36415; 70450; 70551; 71045; 80048; 80053; 80305; 81001; 82607; 82746; 82948; 83036; 83690; 83735; 83880; 84100; 84443; 84484; 85027; 85610; 85651; 87086; 87186; 87635; 87804; 93005; 93306; 93356; 93880; 97161; 99285; G0378; J1956; J3490; J7040